=== PATIENT | female | born 1940 | race Caucasian/White ===

== ENCOUNTER 2017-07-04 13:52 | Inpatient (IN) ==
--- NOTE | 2017-07-04 13:58 | Emergency Department Note ---
Disposition Clinical Impression: Weakness, Vertigo, Hallucination Disposition: Admitted As Inpatient Condition: Good General Adult HPI - General Chief complaint: ED Dizziness Stated complaint: vertigo Time Seen by Provider: 07/04/17 13:54 Source: patient Limitations: no limitations - History of Present Illness Pain Scale: 5 - Related Data Home Medications Medication Instructions Recorded Confirmed Simvastatin [Zocor] 20 mg PO HS 03/23/16 07/04/17 glyBURIDE [GlyBURIDE] 5 mg PO QPM 03/23/16 07/04/17 glyBURIDE [GlyBURIDE] 7.5 mg PO QAM 03/23/16 07/04/17 Ascorbate Calcium [Vitamin C] 500 mg PO DAILY 04/02/16 07/04/17 Aspirin Enteric Coated [Aspirin EC] 81 mg PO DAILY 04/02/16 07/04/17 Calcium Carbonate/Vitamin D3 1 each PO DAILY 04/02/16 07/04/17 [Calcium 500 + D Tablet] Ferrous Sulfate 325 mg PO DAILY 04/02/16 07/04/17 Ciprofloxacin HCl [Cipro] 250 mg PO 07/04/17 07/04/17 Meclizine HCl [Verticalm] 25 mg PO TID PRN 07/04/17 07/04/17 Allergies Allergy/AdvReac Type Severity Reaction Status Date / Time Penicillins Allergy See Verified 07/04/17 14:04 Comments sulfabenzamide Allergy See Verified 07/04/17 14:04 Comments Past Medical History - Past Medical History Medical history: Reports: arthritis, diabetes, hyperlipidemia, other Surgical history: Reports: breast surgery, carotid endarterectomy, colectomy Psychiatric history: Reports: no psych history - Social History Smoking Status: Never smoker Smokeless Tobacco Status: No Alcohol use: Reports: none Drug use: Reports: none Physical Exam - General Limitations: no limitations General appearance: alert, in no apparent distress Course Vital Signs Temperature 97.7 F 07/04/17 13:54 Pulse Rate 76 07/04/17 13:54 Respiratory Rate 20 07/04/17 13:54 Blood Pressure 158/126 07/04/17 13:54 O2 Sat by Pulse Oximetry 99 07/04/17 13:54 Temperature 97.6 F 07/05/17 11:45 Pulse Rate 74 07/05/17 11:45 Respiratory Rate 18 07/05/17 11:45 Blood Pressure 130/75 07/05/17 11:45 O2 Sat by Pulse Oximetry 97 07/05/17 11:45 Oxygen Delivery Oxygen Delivery Room Air Medical Decision Making - Lab Data Result diagrams: 07/05/17 05:53 07/05/17 05:53 Lab Results 07/04/17 07/04/17 07/04/17 Range/Units 14:25 14:25 14:25 WBC 5.2 (4.3-11.1) K/mcL RBC 4.13 (3.82-4.97) M/mcL Hgb 15.1 (11.5-15.4) g/dL Hct 41.3 (35.3-44.9) % MCV 100.0 (83.0-100.0) fL MCH 36.6 H (28.0-33.3) pg MCHC 36.6 H (31.6-35.5) g/dL RDW 16.7 H (11.5-14.5) % Plt Count 208 (140-400) K/mcL MPV 9.3 L (9.4-12.4) fL Immature Gran % 0.2 (0-4) % Seg Neutrophils % 58.8 % Lymphocytes % 28.9 % Monocytes % 10.7 % Eosinophils % 0.6 % Basophils % 0.8 % Neutrophils # 3.0 (1.6-8.9) K/mcL Lymphocytes # 1.5 (0.6-4.6) K/mcL Monocytes # 0.6 (0.0-1.3) K/mcL Eosinophils # 0.0 (0.0-0.6) K/mcL Basophils # 0.0 (0.0-0.2) K/mcL PT 11.3 (9.4-12.1) Seconds INR 1.1 Sodium 137 (136-145) mEq/L Potassium 3.9 (3.5-4.5) mEq/L Chloride 104 (98-109) mEq/L Carbon Dioxide 24 (19-29) mEq/L BUN 12 (7-20) mg/dL Creatinine 0.77 (0.57-1.11) mg/dL Est GFR ( Amer) > 60 (> 60) Est GFR (Non-Af Amer) > 60 (> 60) BUN/Creatinine Ratio 16 (6-26) Glucose 124 H (70-99) mg/dL Calculated Osmolality 285 (280-300) Lactic Acid (0.5-2.2) mmol/L Calcium 9.4 (8.6-10.8) mg/dL Total Bilirubin 1.1 (0.2-1.2) mg/dL AST 27 (5-34) Units/L ALT 42 (0-55) Units/L Alkaline Phosphatase 69 (38-126) Units/L Troponin I (0-0.03) ng/mL Serum Total Protein 7.0 (6.0-8.3) g/dL Albumin 3.8 (3.5-5.0) g/dL Globulin 3.2 (2.4-3.5) g/dL Albumin/Globulin Ratio 1.2 (1.1-2.2) Urine Color (Yellow) Urine Clarity (Clear) Urine pH (5.0-8.0) pH Units Ur Specific [employer] (1.010-1.025) Urine Protein (Neg-Trace) mg/dL Urine Glucose (UA) (Normal) mg/dL Urine Ketones (Negative) mg/dL Urine Blood (Negative) Urine Nitrite (Negative) Urine Bilirubin (Negative) Urine Urobilinogen (Normal) mg/dL Ur Leukocyte Esterase (Negative) Urine Microscopic RBC (0-3) per hpf Urine Microscopic WBC (0-3) per hpf Ur Squamous Epith Cells (None-Few) per lpf Urine Bacteria (None-Few) per hpf Hyaline Casts (None-Few) per lpf Ur Culture Indicated? (NO) 07/04/17 07/04/17 07/04/17 Range/Units 14:25 14:25 15:27 WBC (4.3-11.1) K/mcL RBC (3.82-4.97) M/mcL Hgb (11.5-15.4) g/dL Hct (35.3-44.9) % MCV (83.0-100.0) fL MCH (28.0-33.3) pg MCHC (31.6-35.5) g/dL RDW (11.5-14.5) % Plt Count (140-400) K/mcL MPV (9.4-12.4) fL Immature Gran % (0-4) % Seg Neutrophils % % Lymphocytes % % Monocytes % % Eosinophils % % Basophils % % Neutrophils # (1.6-8.9) K/mcL Lymphocytes # (0.6-4.6) K/mcL Monocytes # (0.0-1.3) K/mcL Eosinophils # (0.0-0.6) K/mcL Basophils # (0.0-0.2) K/mcL PT (9.4-12.1) Seconds INR Sodium (136-145) mEq/L Potassium (3.5-4.5) mEq/L Chloride (98-109) mEq/L Carbon Dioxide (19-29) mEq/L BUN (7-20) mg/dL Creatinine (0.57-1.11) mg/dL Est GFR ( Amer) (> 60) Est GFR (Non-Af Amer) (> 60) BUN/Creatinine Ratio (6-26) Glucose (70-99) mg/dL Calculated Osmolality (280-300) Lactic Acid 1.8 (0.5-2.2) mmol/L Calcium (8.6-10.8) mg/dL Total Bilirubin (0.2-1.2) mg/dL AST (5-34) Units/L ALT (0-55) Units/L Alkaline Phosphatase (38-126) Units/L Troponin I 0.00 (0-0.03) ng/mL Serum Total Protein (6.0-8.3) g/dL Albumin (3.5-5.0) g/dL Globulin (2.4-3.5) g/dL Albumin/Globulin Ratio (1.1-2.2) Urine Color Yellow (Yellow) Urine Clarity Clear (Clear) Urine pH 7.5 (5.0-8.0) pH Units Ur Specific [place] [employer] 1.019 (1.010-1.025) Urine Protein Negative (Neg-Trace) mg/dL Urine Glucose (UA) Normal (Normal) mg/dL Urine Ketones Negative (Negative) mg/dL Urine Blood Negative (Negative) Urine Nitrite Negative (Negative) Urine Bilirubin Negative (Negative) Urine Urobilinogen Normal (Normal) mg/dL Ur Leukocyte Esterase Small H (Negative) Urine Microscopic RBC 0-3 (0-3) per hpf Urine Microscopic WBC 5-15 H (0-3) per hpf Ur Squamous Epith Cells Many H (None-Few) per lpf Urine Bacteria None Seen (None-Few) per hpf Hyaline Casts None Seen (None-Few) per lpf Ur Culture Indicated? YES A (NO) Attestation Statement - Attestation Attestation: I examined this patient and my medical decision-making was reviewed with the Resident Physician. I agree with the documented findings, disposition and treatment plan as described except to the extent set forth below. [id number] time provided Patient arrives by ambulance. She complains of hallucinations. She is currently taking ciprofloxacin for urinary tract infection. She complains of chest and abdominal discomfort. She is anxious appearing on exam
[2017-07-04] MEDS ORDERED: Ondansetron 4 MG/2 ML VIAL IVP ONE (14:04)
--- NOTE | 2017-07-04 14:08 | Emergency Department Note ---
Disposition Clinical Impression: Weakness, Vertigo, Hallucination Disposition: Admitted As Inpatient Condition: Good Referrals: Mario Rojas DO [Primary Care Provider] - Forms: ED Satisfaction Letter General Adult HPI - General Chief complaint: ED Dizziness Stated complaint: vertigo Time Seen by Provider: 07/04/17 13:54 Source: patient Limitations: no limitations Nursing Notes Reviewed: Yes Vital Signs Reviewed: Yes - History of Present Illness HPI Narrative: Patient presents today for evaluation of weakness, dizziness, hallucinations. Patient was recently seen and evaluated at outside ED approximately 1 week ago. Patient was placed on antibiotics which have since been changed twice. Patient states that weakness and dizziness continue. She started to develop hallucinations last night. Describes pain in the abnormal environment as well as being completely lost. Patient's most recent medication is Cipro. Patient has not had a thorough workup of potential dizziness. Patient has worsening symptoms despite treatment. Overall the patient does have some mild abdominal discomfort. Does not stay better worse with anything. Patient has not had abnormal bowel movements. Patient will receive blood work, CT head, abdomen/ pelvis, urinalysis and likely admission secondary to living at home alone. Patient's recently in February and the patient has not been taking this well. Pain Scale: 5 - Related Data Home Medications Medication Instructions Recorded Confirmed Simvastatin [Zocor] 20 mg PO HS 03/23/16 07/04/17 glyBURIDE [GlyBURIDE] 5 mg PO QPM 03/23/16 07/04/17 glyBURIDE [GlyBURIDE] 7.5 mg PO QAM 03/23/16 07/04/17 Ascorbate Calcium [Vitamin C] 500 mg PO DAILY 04/02/16 07/04/17 Aspirin Enteric Coated [Aspirin EC] 81 mg PO DAILY 04/02/16 07/04/17 Calcium Carbonate/Vitamin D3 1 each PO DAILY 04/02/16 07/04/17 [Calcium 500 + D Tablet] Ferrous Sulfate 325 mg PO DAILY 04/02/16 07/04/17 Ciprofloxacin HCl [Cipro] 250 mg PO 07/04/17 07/04/17 Meclizine HCl [Verticalm] 25 mg PO TID PRN 07/04/17 07/04/17 Allergies Allergy/AdvReac Type Severity Reaction Status Date / Time Penicillins Allergy See Verified 07/04/17 14:04 Comments sulfabenzamide Allergy See Verified 07/04/17 14:04 Comments Review of Systems: GENERAL: ~No weight change, change in appetite, thirst, fever or chills. HEENT: ~No headache or blurred vision. CARDIOPULMONARY: ~No chest pain, palpitations or shortness of breath. GASTROINTESTINAL: ~Nausea GENITOURINARY: ~No dysuria or pyuria. ENDOCRINE: ~No goiter, lethargy or heat/cold intolerance. HEMATOLOGY/ONCOLOGY: ~No pallor, bruising or bleeding. MUSCULOSKELETAL: ~No change in strength. No swelling. NEUROLOGIC: ~Dizziness. PSYCHIATRIC: ~No change in personality, affect or depression. Past Medical History - Past Medical History Medical history: Reports: arthritis, diabetes, hyperlipidemia, other Surgical history: Reports: breast surgery, carotid endarterectomy, colectomy Psychiatric history: Reports: no psych history - Social History Smoking Status: Never smoker Smokeless Tobacco Status: No Alcohol use: Reports: none Drug use: Reports: none Physical Exam Head: Normocephalic Atraumatic, dizziness symptomatic when trying to sit her up. Eyes: PERRL, EOMI ENT: Airway patent, no stridor Neck: supple, no meningismus Chest: Lungs clear to auscultation bilateral Cardiac: Regular rate and rhythm, no murmurs, rubs or gallops Abdomen: soft, mild tenderness to palpation along the lower abdomen. Musculoskeletal: Calves symmetric, nontender, no palpable cord Skin: No rash, normal skin tone Neuro: Alert and Oriented to person, place, and time; No focal deficit, CN 2-12 symmetric and intact - General Limitations: no limitations General appearance: alert, in no apparent distress Course - Consultations Consultation #1: Case was discussed with Michelle Cavanaugh. Patient accepted for admission. Vital Signs Temperature 97.7 F 07/04/17 13:54 Pulse Rate 76 07/04/17 13:54 Respiratory Rate 20 07/04/17 13:54 Blood Pressure 158/126 07/04/17 13:54 O2 Sat by Pulse Oximetry 99 07/04/17 13:54 Temperature 97.7 F 07/04/17 13:54 Pulse Rate 73 07/04/17 15:29 Respiratory Rate 16 07/04/17 15:29 Blood Pressure 157/73 07/04/17 15:29 O2 Sat by Pulse Oximetry 99 07/04/17 15:29 Oxygen Delivery Oxygen Delivery Room Air Medical Decision Making - Medical Records Medical records reviewed: Yes I reviewed the patient's medical records. - Lab Data Lab results reviewed: Yes I reviewed the patient's lab results. Result diagrams: 07/04/17 14:25 07/04/17 14:25 Lab Results 07/04/17 07/04/17 07/04/17 Range/Units 14:25 14:25 14:25 WBC 5.2 (4.3-11.1) K/mcL RBC 4.13 (3.82-4.97) M/mcL Hgb 15.1 (11.5-15.4) g/dL Hct 41.3 (35.3-44.9) % MCV 100.0 (83.0-100.0) fL MCH 36.6 H (28.0-33.3) pg MCHC 36.6 H (31.6-35.5) g/dL RDW 16.7 H (11.5-14.5) % Plt Count 208 (140-400) K/mcL MPV 9.3 L (9.4-12.4) fL Immature Gran % 0.2 (0-4) % Seg Neutrophils % 58.8 % Lymphocytes % 28.9 % Monocytes % 10.7 % Eosinophils % 0.6 % Basophils % 0.8 % Neutrophils # 3.0 (1.6-8.9) K/mcL Lymphocytes # 1.5 (0.6-4.6) K/mcL Monocytes # 0.6 (0.0-1.3) K/mcL Eosinophils # 0.0 (0.0-0.6) K/mcL Basophils # 0.0 (0.0-0.2) K/mcL PT 11.3 (9.4-12.1) Seconds INR 1.1 Sodium 137 (136-145) mEq/L Potassium 3.9 (3.5-4.5) mEq/L Chloride 104 (98-109) mEq/L Carbon Dioxide 24 (19-29) mEq/L BUN 12 (7-20) mg/dL Creatinine 0.77 (0.57-1.11) mg/dL Est GFR ( Amer) > 60 (> 60) Est GFR (Non-Af Amer) > 60 (> 60) BUN/Creatinine Ratio 16 (6-26) Glucose 124 H (70-99) mg/dL Calculated Osmolality 285 (280-300) Lactic Acid (0.5-2.2) mmol/L Calcium 9.4 (8.6-10.8) mg/dL Total Bilirubin 1.1 (0.2-1.2) mg/dL AST 27 (5-34) Units/L ALT 42 (0-55) Units/L Alkaline Phosphatase 69 (38-126) Units/L Troponin I (0-0.03) ng/mL Serum Total Protein 7.0 (6.0-8.3) g/dL Albumin 3.8 (3.5-5.0) g/dL Globulin 3.2 (2.4-3.5) g/dL Albumin/Globulin Ratio 1.2 (1.1-2.2) Urine Color (Yellow) Urine Clarity (Clear) Urine pH (5.0-8.0) pH Units Ur Specific [place] (1.010-1.025) Urine Protein (Neg-Trace) mg/dL Urine Glucose (UA) (Normal) mg/dL Urine Ketones (Negative) mg/dL Urine Blood (Negative) Urine Nitrite (Negative) Urine Bilirubin (Negative) Urine Urobilinogen (Normal) mg/dL Ur Leukocyte Esterase (Negative) Urine Microscopic RBC (0-3) per hpf Urine Microscopic WBC (0-3) per hpf Ur Squamous Epith Cells (None-Few) per lpf Urine Bacteria (None-Few) per hpf Hyaline Casts (None-Few) per lpf Ur Culture Indicated? (NO) 07/04/17 07/04/17 07/04/17 Range/Units 14:25 14:25 15:27 WBC (4.3-11.1) K/mcL RBC (3.82-4.97) M/mcL Hgb (11.5-15.4) g/dL Hct (35.3-44.9) % MCV (83.0-100.0) fL MCH (28.0-33.3) pg MCHC (31.6-35.5) g/dL RDW (11.5-14.5) % Plt Count (140-400) K/mcL MPV (9.4-12.4) fL Immature Gran % (0-4) % Seg Neutrophils % % Lymphocytes % % Monocytes % % Eosinophils % % Basophils % % Neutrophils # (1.6-8.9) K/mcL Lymphocytes # (0.6-4.6) K/mcL Monocytes # (0.0-1.3) K/mcL Eosinophils # (0.0-0.6) K/mcL Basophils # (0.0-0.2) K/mcL PT (9.4-12.1) Seconds INR Sodium (136-145) mEq/L Potassium (3.5-4.5) mEq/L Chloride (98-109) mEq/L Carbon Dioxide (19-29) mEq/L BUN (7-20) mg/dL Creatinine (0.57-1.11) mg/dL Est GFR ( Amer) (> 60) Est GFR (Non-Af Amer) (> 60) BUN/Creatinine Ratio (6-26) Glucose (70-99) mg/dL Calculated Osmolality (280-300) Lactic Acid 1.8 (0.5-2.2) mmol/L Calcium (8.6-10.8) mg/dL Total Bilirubin (0.2-1.2) mg/dL AST (5-34) Units/L ALT (0-55) Units/L Alkaline Phosphatase (38-126) Units/L Troponin I 0.00 (0-0.03) ng/mL Serum Total Protein (6.0-8.3) g/dL Albumin (3.5-5.0) g/dL Globulin (2.4-3.5) g/dL Albumin/Globulin Ratio (1.1-2.2) Urine Color Yellow (Yellow) Urine Clarity Clear (Clear) Urine pH 7.5 (5.0-8.0) pH Units Ur Specific [place] 1.019 (1.010-1.025) Urine Protein Negative (Neg-Trace) mg/dL Urine Glucose (UA) Normal (Normal) mg/dL Urine Ketones Negative (Negative) mg/dL Urine Blood Negative (Negative) Urine Nitrite Negative (Negative) Urine Bilirubin Negative (Negative) Urine Urobilinogen Normal (Normal) mg/dL Ur Leukocyte Esterase Small H (Negative) Urine Microscopic RBC 0-3 (0-3) per hpf Urine Microscopic WBC 5-15 H (0-3) per hpf Ur Squamous Epith Cells Many H (None-Few) per lpf Urine Bacteria None Seen (None-Few) per hpf Hyaline Casts None Seen (None-Few) per lpf Ur Culture Indicated? YES A (NO) - Radiology Data Radiology results reviewed: Yes I reviewed the patient's radiology results. - EKG Data EKG #1 EKG attestation: Yes I reviewed and interpreted this EKG. EKG results narrative: EKG shows sinus rhythm with ventricular rate of 65 bpm. NM interval 157. QRS 76. QTC 389. Patient has no significant ST elevations or depressions. Patient does have T-wave flattening of the recording leads. Similar appearance to 04/19/16.
[2017-07-04 14:32] LABS: Basophils % 0.8 %; Eosinophils % 0.6 %; Hematocrit 41.3 % (35.3-44.9); Hemoglobin 15.1 g/dL (11.5-15.4); Immature Granulocytes % 0.2 % (0-4); Lymphocytes # 1.5 K/mcL (0.6-4.6); Lymphocytes % 28.9 %; Mean Corpuscular HGB Conc 36.6 g/dL (31.6-35.5); Mean Corpuscular Hemoglobin 36.6 pg (28.0-33.3); Mean Platelet Volume 9.3 fL (9.4-12.4); Monocytes # 0.6 K/mcL (0.0-1.3); Monocytes % 10.7 %; Platelet Count 208 K/mcL (140-400); Red Blood Count 4.13 M/mcL (3.82-4.97); Red Cell Distribution Width 16.7 % (11.5-14.5); Segmented Neutrophils % 58.8 %
[2017-07-04 14:42] LABS: INR 1.1; Prothrombin Time 11.3 Seconds (9.4-12.1)
[2017-07-04 14:44] LABS: Alanine Aminotransferase 42 Units/L (0-55); Albumin 3.8 g/dL (3.5-5.0); Albumin/Globulin Ratio 1.2 (1.1-2.2); Alkaline Phosphatase 69 Units/L (38-126); Aspartate Amino Transferase 27 Units/L (5-34); BUN/Creatinine Ratio 16 (6-26); Bilirubin,Total 1.1 mg/dL (0.2-1.2); Blood Urea Nitrogen 12 mg/dL (7-20); Calcium 9.4 mg/dL (8.6-10.8); Carbon Dioxide 24 mEq/L (19-29); Chloride 104 mEq/L (98-109); Globulin 3.2 g/dL (2.4-3.5); Glucose 124 mg/dL (70-99); Osmolality,Calculated 285 (280-300); Potassium 3.9 mEq/L (3.5-4.5); Sodium 137 mEq/L (136-145); eGFR For African Americans > 60 (> 60); eGFR For Non-African Americans > 60 (> 60)
[2017-07-04 15:37] LABS: Bilirubin,Urine Negative (Negative); Blood,Urine Negative (Negative); Clarity,Urine Clear (Clear); Color,Urine Yellow (Yellow); Glucose,Urine (UA) Normal (Normal); Ketones,Urine Negative (Negative); Leukocyte Esterase,Urine Small (Negative); Nitrite,Urine Negative (Negative); PH,Urine 7.5 pH Units (5.0-8.0); Protein,Urine Negative (Neg-Trace); Specific Gravity,Urine 1.019 (1.010-1.025); Urobilinogen,Urine Normal (Normal)
[2017-07-04 15:39] LABS: Bacteria,Urine None Seen per hpf (None-Few); Hyaline Casts,Urine None Seen per lpf (None-Few); RBC,Urine 0-3 per hpf (0-3); Squamous Epithelial Cell,Urine Many per lpf (None-Few)
[2017-07-04] MEDS ORDERED: Ondansetron 4 MG/2 ML VIAL IVP PRN (19:37)
[2017-07-04] MEDS ORDERED: *HR* Morphine 2 MG/ML SYRINGE IVP PRN (19:37)
[2017-07-04] MEDS ORDERED: Naloxone 0.4 MG/ML INJ IVP PRN (19:37)
[2017-07-04] MEDS ORDERED: D5% in Water 1,000 ML IVC PRN (20:09)
[2017-07-04] MEDS ORDERED: Dextrose Gel 15 GM PO PRN ×2 (20:09)
[2017-07-04] MEDS ORDERED: *HR* Dextrose 50 % in Water (Syg) 50 ML SYRINGE IVP PRN (20:09)
[2017-07-04] MEDS: 0.9 % Sodium Chloride 1,000 ML IVC SCH (20:20)
[2017-07-04] MEDS: Levofloxacin 750 MG/150 ML 750 MG/150 ML BAG IVPB SCH (20:25)
[2017-07-04] MEDS: Insulin LISPRO 300 UNITS/3 ML VIAL SQ SCH (21:00)
--- NOTE | 2017-07-04 22:34 | Internal Med History&Physical ---
Date of Encounter: 07/04/17 Time of Encounter: 20:40 Assessment and Plan (1) UTI (urinary tract infection) Current visit: Yes Status: Acute Acute cystitis, UTI, likely secondary to gram-negative bacilli present on admission - likely causing generalized weakness Continue IV Levaquin, IV fluids, Tylenol as needed Cultures pending CT abdomen - extensive diverticulosis with no diverticulitis, no acute process CT head - no acute intracranial process Cardiac telemetry, labs in a.m., monitor closely Qualifiers: Urinary tract infection type: acute cystitis Hematuria presence: without hematuria Qualified Code(s): N30.00 - Acute cystitis without hematuria (2) Benign paroxysmal positional vertigo Current visit: No Status: Chronic Chronic BPPV causing dizziness Continue Antivert as needed Qualifiers: Laterality: unspecified laterality Qualified Code(s): H81.10 - Benign paroxysmal vertigo, unspecified ear (3) DM w/o complication type II Current visit: No Status: Chronic Type 2 diabetes mellitus, [id number], hyperglycemia Continue insulin sliding scale, glucose checks Qualifiers: Diabetes mellitus [place] [employer] insulin use: without [place] [employer] use Qualified Code(s): E11.9 - Type 2 diabetes mellitus without complications (4) Hyperlipidemia Current visit: No Status: Chronic Continue Zocor Qualifiers: Hyperlipidemia type: unspecified Qualified Code(s): E78.5 - Hyperlipidemia , unspecified (5) DVT prophylaxis Current visit: Yes Status: Acute Continue heparin subcutaneous Internal Medicine - H&P: HPI Chief complaint: Generalized weakness, dizziness Admitted From: Emergency Dept Plans for Post Hospital Care: Home History of present illness: Ms. Ambriz is a 76 year old female with past medical history arthritis, diabetes , hyperlipidemia and vertigo. Patient presents to the ED with complaints of generalized weakness and dizziness. Examined in the room. Patient is awake and alert. Not in any distress. Able to provide all history. No family members at bedside. Patient was recently evaluated at the outside ED about a week ago for severe complaints. She was placed on antibiotics for UTI. Patient states her symptoms have been gradually worsening. She states she has been also been having some confusion over the past few days. She states she did take Antivert for her dizziness which did not help much. She denies chest pain or shortness of breath. Denies palpitations or any other problems. Dizziness and weakness is worse when she tries to get up and change of position. She states her has recently and thinks that this may be making things worse for her. No other acute events or complaints. Initial workup in the ED shows a UTI. CT of the abdomen and pelvis is negative. CT of the head is negative for any acute intracranial abnormality. Patient is being admitted for generalized weakness and dizziness and UTI. She will need IV antibiotics and IV fluids. Patient has been extended about her condition and plan of care in detail. No unanswered questions. She understood and agreed. CODE STATUS full code. Past Med Surg Social Fam HX - Past Medical History Medical history: arthritis, diabetes, hyperlipidemia Psychiatric history: no psych history - Past Surgical History Surgical History: breast surgery, carotid endarterectomy, colectomy, hysterectomy - Social History Smoking Status: Never smoker Smokeless Tobacco Status: No Alcohol use: none Drug use: none - Family History Mother Living Status: Hx Family Cardiac Disorders: Yes Father Living Status: Hx Family Endocrine Disorder: Yes (DM) Internal Medicine - H&P: Meds Simvastatin [Zocor] 20 mg PO HS 03/23/16 [History] glyBURIDE [GlyBURIDE] 5 mg PO QPM 03/23/16 [History] glyBURIDE [GlyBURIDE] 7.5 mg PO QAM 03/23/16 [History] Ascorbate Calcium [Vitamin C] 500 mg PO DAILY 04/02/16 [History] Aspirin Enteric Coated [Aspirin EC] 81 mg PO DAILY 04/02/16 [History] Calcium Carbonate/Vitamin D3 [Calcium 500 + D Tablet] 1 each PO DAILY 04/02/16 [ History] Ferrous Sulfate 325 mg PO DAILY 04/02/16 [History] Ciprofloxacin HCl [Cipro] 250 mg PO 07/04/17 [History] Meclizine HCl [Verticalm] 25 mg PO TID PRN 07/04/17 [History] 3 Allergy/AdvReac Type Severity Reaction Status Date / Time Penicillins Allergy See Verified 07/04/17 14:04 Comments sulfabenzamide Allergy See Verified 07/04/17 14:04 Comments All Systems PM: A 10-system review of systems was performed and is negative for pertinent findings except as documented above in the HPI. - Constitutional Constitutional: fatigue, fever(s), weakness - EENT Eyes: no blurry vision - Cardiovascular Cardiovascular ROS IM: no chest pain, no claudication, no diaphoresis, no dyspnea, no dyspnea on exertion, no orthopnea, no palpitations, no syncope - Respiratory Respiratory: no cough, no dyspnea, no dyspnea on exertion, no wheezing, no chest congestion - Gastrointestinal Gastrointestinal: no abdominal pain, no constipation, no cramping, no diarrhea, no dyspepsia, no heartburn, no hematemesis, no nausea, no vomiting - Genitourinary Genitourinary: dysuria - Neurological Neurological ROS: confusion, dizziness, no abnormal gait, no loss of vision, no numbness, no tingling - Constitutional Vitals: Temp Pulse Resp BP Pulse Ox 97.7 F 81 16 158/83 98 07/04/17 13:54 07/04/17 17:15 07/04/17 17:15 07/04/17 17:15 07/04/17 17:15 General appearance: Present: cooperative, A&O X 3, pleasant, no acute distress, answers questions appropriately - Head Head exam: Present: atraumatic - Eye Eye exam: Present: EOMI - ENT ENT exam: Present: mucous membranes dry - Respiratory Respiratory exam: Present: CTAB. Absent: rales, rhonchi, wheezes, tachypnea - Cardiovascular Cardiovascular exam: Present: RRR, +S1, +S2 - GI/Abdominal GI/Abdominal exam: Present: soft, no peritoneal signs. Absent: distended, firm , guarding, tenderness - Extremities Exam Extremities exam: Present: radial pulses palpable and symmetrical. Absent: calf tenderness, cyanotic, pedal edema - Neurological Exam Neurological exam: Present: alert, CN II-XII intact, oriented X3, no focal deficits. Absent: facial droop, speech deficit Internal Med - H&P Results - Labs CBC & Chem 7: 07/04/17 14:25 07/04/17 14:25
[2017-07-05] MEDS: *HR* Heparin 5,000 UNIT/ML VIAL SQ SCH ×2 (06:43→17:39)
[2017-07-05] MEDS: Famotidine 20 MG/2 ML VIAL IVP SCH ×2 (06:46→17:39)
[2017-07-05 07:16] LABS: BUN/Creatinine Ratio 17 (6-26); Blood Urea Nitrogen 14 mg/dL (7-20); Calcium 9.1 mg/dL (8.6-10.8); Carbon Dioxide 26 mEq/L (19-29); Chloride 106 mEq/L (98-109); Glucose 77 mg/dL (70-99); Osmolality,Calculated 291 (280-300); Potassium 4.2 mEq/L (3.5-4.5); Sodium 141 mEq/L (136-145); eGFR For African Americans > 60 (> 60); eGFR For Non-African Americans > 60 (> 60)
[2017-07-05 08:49] LABS: Eosinophils % 0.8 %; Hemoglobin 14.6 g/dL (11.5-15.4)
[2017-07-05 09:21] LABS: Basophils % 0.6 %; Eosinophils # 0.1 K/mcL (0.0-0.6); Hematocrit 38.1 % (35.3-44.9); Immature Granulocytes % 0.8 % (0-4); Immature Platelets 3.5 % (1.1-6.1); Lymphocytes # 1.7 K/mcL (0.6-4.6); Lymphocytes % 26.7 %; Mean Corpuscular Hemoglobin 38.8 pg (28.0-33.3); Mean Corpuscular Volume 101.3 fL (83.0-100.0); Mean Platelet Volume 9.8 fL (9.4-12.4); Monocytes # 0.7 K/mcL (0.0-1.3); Monocytes % 11.8 %; Neutrophils # 3.7 K/mcL (1.6-8.9); Platelet Count 236 K/mcL (140-400); Red Blood Count 3.76 M/mcL (3.82-4.97); Red Cell Distribution Width 17.9 % (11.5-14.5); Segmented Neutrophils % 59.3 %
[2017-07-05 09:22] LABS: Mean Corpuscular HGB Conc 38.3 g/dL (31.6-35.5)
[2017-07-05] MEDS: Insulin LISPRO 300 UNITS/3 ML VIAL SQ SCH ×4 (09:28→20:59)
[2017-07-05] MEDS: (Calcium Carbonate/Vitamin D3 [Calcium 500-Vit D3 400) PO SCH (09:31)
[2017-07-05] MEDS: Aspirin Enteric Coated 81 MG Tablet PO SCH (09:31)
[2017-07-05] MEDS: Ascorbic Acid 500 MG TABLET PO SCH (09:31)
--- NOTE | 2017-07-05 15:20 | Internal Med Progress Note ---
Date of Encounter: 07/05/17 Time of Encounter: 09:20 - Assessment and plan (1) UTI (urinary tract infection) Current Visit: Yes Status: Acute Assessment and plan: Acute cystitis, UTI, likely secondary to gram-negative bacilli present on admission - likely causing generalized weakness - symptoms seem to be improving slowly Continue IV Levaquin, IV fluids, Tylenol as needed Continue all home meds Cultures - pending CT abdomen - extensive diverticulosis with no diverticulitis, no acute process CT head - no acute intracranial process Lower chest - lung bases appear unremarkable Lactic acid - 1.8 Cardiac telemetry, labs in a.m., monitor closely Qualifiers: Urinary tract infection type: acute cystitis Hematuria presence: without hematuria Qualified Code(s): N30.00 - Acute cystitis without hematuria (2) Benign paroxysmal positional vertigo Current Visit: No Status: Chronic Assessment and plan: Chronic BPPV - likely causing dizziness Continue Antivert as needed Qualifiers: Laterality: unspecified laterality Qualified Code(s): H81.10 - Benign paroxysmal vertigo, unspecified ear (3) DM w/o complication type II Current Visit: No Status: Chronic Assessment and plan: Type 2 diabetes mellitus, [id number], normoglycemia Continue insulin sliding scale, glucose checks Qualifiers: Diabetes mellitus intermediate teacher insulin use: without intermediate teacher use Qualified Code(s): E11.9 - Type 2 diabetes mellitus without complications (4) Hyperlipidemia Current Visit: No Status: Chronic Assessment and plan: Continue Zocor Qualifiers: Hyperlipidemia type: unspecified Qualified Code(s): E78.5 - Hyperlipidemia , unspecified (5) DVT prophylaxis Current Visit: Yes Status: Acute Assessment and plan: Continue heparin subcutaneous - Time Spent With Patient 25 - 35 minutes - Subjective Interval history: Examined this morning. Patient is awake and alert. Not in any distress. Denies chest pain or shortness of breath. Hemodynamically stable. No fever. Complains of persistent generalized weakness. States her dizziness has improved. Tolerating oral diet well. Ambulating with some assistance. No other acute events or complaints. - Constitutional Vitals: Temp Pulse Resp BP Pulse Ox 97.6 F 74 18 130/75 97 07/05/17 11:45 07/05/17 11:45 07/05/17 11:45 07/05/17 11:45 07/05/17 11:45 General appearance: Present: cooperative, A&O X 3, pleasant, no acute distress, answers questions appropriately - Head Head exam: Present: atraumatic - Eye Eye exam: Present: EOMI - ENT ENT exam: Present: mucous membranes moist - Respiratory Respiratory exam: Present: CTAB. Absent: rales, rhonchi, wheezes, tachypnea - Cardiovascular Cardiovascular exam: Present: RRR, +S1, +S2 - GI/Abdominal GI/Abdominal exam: Present: soft. Absent: distended, firm, guarding, tenderness - Extremities Exam Extremities exam: Present: pedal edema (Mild bilateral), radial pulses palpable and symmetrical. Absent: calf tenderness, cyanotic - Neurological Exam Neurological exam: Present: alert, CN II-XII intact, oriented X3, no focal deficits. Absent: facial droop, speech deficit Internal Medicine: Result - Labs CBC & Chem 7: 07/05/17 05:53 07/05/17 05:53 Labs: Short CBC 07/05/17 Range/Units 05:53 WBC 6.3 (4.3-11.1) K/mcL Hgb 14.6 (11.5-15.4) g/dL Hct 38.1 (35.3-44.9) % Plt Count 236 (140-400) K/mcL Neutrophils # 3.7 (1.6-8.9) K/mcL BMP 07/05/17 05:53 Sodium 141 Potassium 4.2 Chloride 106 Carbon Dioxide 26 BUN 14 Creatinine 0.84 Glucose 77 Calcium 9.1 - ABG Interpretation ABG results: PT/INR, D-dimer PT 11.3 Seconds (9.4-12.1) 07/04/17 14:25 Consult Discharge Plan - Plan Referrals: Mario Rojas DO [Primary Care Provider] -
[2017-07-05] MEDS: 0.9 % Sodium Chloride 1,000 ML IVC SCH (17:38)
[2017-07-05] MEDS: Levofloxacin 750 MG/150 ML 750 MG/150 ML BAG IVPB SCH (20:51)
[2017-07-06] MEDS: *HR* Heparin 5,000 UNIT/ML VIAL SQ SCH ×2 (05:34→18:15)
[2017-07-06] MEDS: Famotidine 20 MG/2 ML VIAL IVP SCH ×2 (05:34→18:16)
[2017-07-06] MEDS: Insulin LISPRO 300 UNITS/3 ML VIAL SQ SCH ×4 (08:27→22:00)
[2017-07-06] MEDS: Ascorbic Acid 500 MG TABLET PO SCH (09:19)
[2017-07-06] MEDS: Aspirin Enteric Coated 81 MG Tablet PO SCH (09:19)
[2017-07-06] MEDS: (Calcium Carbonate/Vitamin D3 [Calcium 500-Vit D3 400) PO SCH (09:20)
--- NOTE | 2017-07-06 10:26 | Internal Med Progress Note ---
Date of Encounter: 07/06/17 Time of Encounter: 08:00 - Assessment and plan (1) UTI (urinary tract infection) Current Visit: Yes Status: Acute Assessment and plan: Acute cystitis, UTI, likely secondary to gram-negative bacilli present on admission - likely causing generalized weakness - symptoms are improving slowly Continue IV Levaquin, IV fluids, Tylenol as needed Continue all home meds Cultures - no growth CT abdomen - extensive diverticulosis with no diverticulitis, no acute process CT head - no acute intracranial process Lower chest - lung bases appear unremarkable Lactic acid - 1.8 Cardiac telemetry, monitor closely, Anticipate discharge in a.m. Qualifiers: Urinary tract infection type: acute cystitis Hematuria presence: without hematuria Qualified Code(s): N30.00 - Acute cystitis without hematuria (2) Benign paroxysmal positional vertigo Current Visit: No Status: Chronic Assessment and plan: Chronic BPPV - likely causing dizziness Continue Antivert as needed Qualifiers: Laterality: unspecified laterality Qualified Code(s): H81.10 - Benign paroxysmal vertigo, unspecified ear (3) DM w/o complication type II Current Visit: No Status: Chronic Assessment and plan: Type 2 diabetes mellitus, [id number], normoglycemia Continue insulin sliding scale, glucose checks Continue home dose of Glyburide on discharge Qualifiers: Diabetes mellitus mcc insulin use: without terminal manager use Qualified Code(s): E11.9 - Type 2 diabetes mellitus without complications (4) Hyperlipidemia Current Visit: No Status: Chronic Assessment and plan: Continue home dose of Zocor Qualifiers: Hyperlipidemia type: unspecified Qualified Code(s): E78.5 - Hyperlipidemia , unspecified (5) DVT prophylaxis Current Visit: Yes Status: Acute Assessment and plan: Continue Heparin subcutaneous - Time Spent With Patient 25 - 35 minutes - Subjective Interval history: Examined this morning. Patient is awake and alert. Not in any distress. Denies chest pain or shortness of breath. Hemodynamically stable. No fever. Complains of generalized weakness which is persistent. States her dizziness has improved. Tolerating oral diet well. Ambulating with minimal assistance. No other acute events or complaints. Despite discharge home in a.m. - Constitutional Vitals: Temp Pulse Resp BP Pulse Ox 97.6 F 67 18 116/78 95 07/06/17 08:00 07/06/17 08:00 07/06/17 08:00 07/06/17 08:00 07/06/17 08:00 General appearance: Present: cooperative, A&O X 3, pleasant, no acute distress, answers questions appropriately - Head Head exam: Present: atraumatic - Eye Eye exam: Present: EOMI - ENT ENT exam: Present: mucous membranes moist - Respiratory Respiratory exam: Present: CTAB. Absent: accessory muscle use, chest wall tenderness, rales, rhonchi, wheezes, tachypnea - Cardiovascular Cardiovascular exam: Present: RRR, +S1, +S2 - GI/Abdominal GI/Abdominal exam: Present: soft. Absent: distended, firm, guarding, tenderness - Extremities Exam Extremities exam: Present: pedal edema (Mild bilateral), radial pulses palpable and symmetrical. Absent: calf tenderness, cyanotic - Neurological Exam Neurological exam: Present: alert, CN II-XII intact, oriented X3, no focal deficits. Absent: facial droop, speech deficit Internal Medicine: Result - Labs CBC & Chem 7: 07/05/17 05:53 07/05/17 05:53 - ABG Interpretation ABG results: PT/INR, D-dimer PT 11.3 Seconds (9.4-12.1) 07/04/17 14:25 Consult Discharge Plan - Plan Referrals: Mario Rojas DO [Primary Care Provider] -
[2017-07-06] MEDS: Levofloxacin 750 MG/150 ML 750 MG/150 ML BAG IVPB SCH (22:01)
[2017-07-07] MEDS: Famotidine 20 MG/2 ML VIAL IVP SCH (05:12)
[2017-07-07] MEDS: *HR* Heparin 5,000 UNIT/ML VIAL SQ SCH ×2 (05:12→18:09)
[2017-07-07] MEDS: Insulin LISPRO 300 UNITS/3 ML VIAL SQ SCH ×4 (08:00→22:44)
[2017-07-07] MEDS: Ascorbic Acid 500 MG TABLET PO SCH (09:24)
[2017-07-07] MEDS: Aspirin Enteric Coated 81 MG Tablet PO SCH (09:24)
[2017-07-07] MEDS: (Calcium Carbonate/Vitamin D3 [Calcium 500-Vit D3 400) PO SCH (09:24)
--- NOTE | 2017-07-07 09:32 | Discharge Summary ---
Date of Encounter: 07/07/17 Time of Encounter: 08:00 - Discharge Diagnosis (1) UTI (urinary tract infection) Priority: Primary Status: Acute Comments: Acute cystitis, UTI, likely secondary to gram-negative bacilli present on admission - likely causing generalized weakness - symptoms now improved Continue PO Levaquin, Tylenol as needed Continue all home meds Cultures - no growth CT abdomen - extensive diverticulosis with no diverticulitis, no acute process CT head - no acute intracranial process Lower chest - lung bases appear unremarkable Lactic acid - 1.8 Advised to follow up with PCP, return if symptoms worsen Qualifiers: Urinary tract infection type: acute cystitis Hematuria presence: without hematuria Qualified Code(s): N30.00 - Acute cystitis without hematuria (2) Benign paroxysmal positional vertigo Priority: Primary Status: Chronic Comments: Chronic BPPV - likely causing dizziness - symptoms now improved Continue Antivert as needed Qualifiers: Laterality: unspecified laterality Qualified Code(s): H81.10 - Benign paroxysmal vertigo, unspecified ear (3) DM w/o complication type II Priority: Secondary Status: Chronic Comments: Type 2 diabetes mellitus, [id number]-jirsbzjme, normoglycemia Continue home dose of Glyburide on discharge Check blood glucose daily, watch for hypoglycemia Qualifiers: Diabetes mellitus termite renewal 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 insulin use: without termite renewal inspector use Qualified Code(s): E11.9 - Type 2 diabetes mellitus without complications (4) Hyperlipidemia Priority: Secondary Status: Chronic Comments: Continue home dose of Zocor Qualifiers: Hyperlipidemia type: unspecified Qualified Code(s): E78.5 - Hyperlipidemia , unspecified - Discharge Medications Prescriptions: Docusate [Colace] 100 mg PO BID PRN #20 capsule PRN Reason: Constipation levoFLOXacin [Levofloxacin] 500 mg PO DAILY 5 Days #5 tablet Meclizine HCl [Verticalm] 25 mg PO TID PRN #30 tablet PRN Reason: Dizziness Home Medications: Simvastatin [Zocor] 20 mg PO HS 03/23/16 [History] glyBURIDE [GlyBURIDE] 5 mg PO QPM 03/23/16 [History] glyBURIDE [GlyBURIDE] 7.5 mg PO QAM 03/23/16 [History] Ascorbate Calcium [Vitamin C] 500 mg PO DAILY 04/02/16 [History] Aspirin Enteric Coated [Aspirin EC] 81 mg PO DAILY 04/02/16 [History] Calcium Carbonate/Vitamin D3 [Calcium 500-Vit D3 400 Tablet] 1 each PO DAILY [History] Ferrous Sulfate 325 mg PO DAILY 04/02/16 [History] Docusate [Colace] 100 mg PO BID PRN #20 capsule 07/07/17 [Rx] Meclizine HCl [Verticalm] 25 mg PO TID PRN #30 tablet 07/07/17 [Rx] levoFLOXacin [Levofloxacin] 500 mg PO DAILY 5 Days #5 tablet 07/07/17 [Rx] Allergies/Adverse Reactions: 3 Allergy/AdvReac Type Severity Reaction Status Date / Time Penicillins Allergy See Verified 07/04/17 14:04 Comments sulfabenzamide Allergy See Verified 07/04/17 14:04 Comments Date of admission: 07/04/17 19:37 Primary care physician: Mario Rojas Consults: 07/05/17 08:53 Consult to Occupational Therapy [CONS] Routine Comment: Evaluate, develop and implement POC Reason for Consult: Weakness Consult to Physical Therapy [CONS] Routine Comment: Evaluate, develop and implement POC Reason for Consult: Weakness Consult to Medical Intern [CONS] Routine Reason for SW Consult: Possible HH/Therapy needs at D/C due to weakness. Anticipated date of discharge: 07/07/17 - Patient Status Disposition: Home Health Service Condition: Good Functional capacity at discharge: independent ambulation Overall status at discharge: patient is progressing back to baseline - Discharge Instructions Follow Up With: Mario Rojas DO [Primary Care Provider] - - Diet and Activity Activity: increase activity as tolerated, resume usual activities as tolerated Diet: diabetic diet Hospital course: Ms. Ambriz is a 76 year old female with past medical history of arthritis, diabetes and hyperlipidemia. She presented to the ED with complaints of generalized weakness and dizziness. She was recently diagnosed with UTI and was placed and antibiotics. Her symptoms have been gradually worsening and she decided to come to the ED. She also stated that she had been more confused and anxious. She does take Antivert for her dizziness which did not help. She denied any other problems at the time of admission. CT of the abdomen and pelvis done initially is negative. Patient to have a UTI on admission. CT of the head is negative for any acute intracranial abnormality. She was started on IV Levaquin and IV fluids. Her generalized weakness and dizziness slowly improved. She was also continued Antivert. Patient also continued on aspirin and simvastatin. Patient is on insulin sliding scale for diabetes. She was on heparin for DVT prophylaxis. Lactic acid is within normal limits. Urine culture does not show any growth. Patient is being discharged with Levaquin by mouth. Patient is now sitting up comfortably in chair and she needs minimal assistance for ambulation. She is tolerating oral diet well. Patient does have anxiety at times and has required one time Ativan, which has helped her. No other acute events or complications during her stay in the hospital. Patient has been explained about her condition and plan of care in detail. She understood and agreed. No unanswered questions. Patient states she feels better and wants to go to ECF. Initially. The patient. Discharge home with home health, but patient would like to go to ECF for short-term. Patient is being discharged in a stable condition. - Time Spent with Patient Total time spent providing and/or coordinating discharge services: Less than 30 minutes - Constitutional Vitals: Temp Pulse Resp BP Pulse Ox 98.2 F 70 14 121/76 94 07/07/17 06:37 07/07/17 06:37 07/07/17 06:37 07/07/17 06:37 07/07/17 06:37 General appearance: Present: cooperative, A&O X 3, pleasant, no acute distress, answers questions appropriately - Head Head exam: Present: atraumatic - Eye Eye exam: Present: EOMI - ENT ENT exam: Present: mucous membranes moist - Respiratory Respiratory exam: Present: CTAB. Absent: rales, rhonchi, wheezes, tachypnea - Cardiovascular Cardiovascular exam: Present: RRR, +S1, +S2 - GI/Abdominal GI/Abdominal exam: Present: soft. Absent: distended, firm, guarding, tenderness - Extremities Exam Extremities exam: Present: radial pulses palpable and symmetrical. Absent: calf tenderness, cyanotic, pedal edema - Neurological Exam Neurological exam: Present: alert, oriented X3, no focal deficits. Absent: facial droop, speech deficit
--- NOTE | 2017-07-07 09:44 | Physician Discharge Referral ---
Home Health/Hosp Referral Info Transfer to: Home Health Provider in Charge Post Discharge: PCP - Diagnosis (1) UTI (urinary tract infection) Priority: Primary Status: Acute (2) Benign paroxysmal positional vertigo Priority: Primary Status: Chronic (3) DM w/o complication type II Priority: Secondary Status: Chronic (4) Hyperlipidemia Priority: Secondary Status: Chronic - Respiratory Orders Smoking Cessation: Smoking cessation has been advised. For more information, call the [place] Tobacco Quit Line at 0-865-MKKJ-NOW. - Diet/Nutrition Diet/Nutrition Orders: Cardiac - Activity Activity Orders: Ambulate - Services Needed Following services are medically necessary services: Nursing, Physical Therapy, Occupational Therapy - Transfer Medications Prescriptions: Docusate [Colace] 100 mg PO BID PRN #20 capsule PRN Reason: Constipation levoFLOXacin [Levofloxacin] 500 mg PO DAILY 5 Days #5 tablet Meclizine HCl [Verticalm] 25 mg PO TID PRN #30 tablet PRN Reason: Dizziness Home Medications: Simvastatin [Zocor] 20 mg PO HS 03/23/16 [History] glyBURIDE [GlyBURIDE] 5 mg PO QPM 03/23/16 [History] glyBURIDE [GlyBURIDE] 7.5 mg PO QAM 03/23/16 [History] Ascorbate Calcium [Vitamin C] 500 mg PO DAILY 04/02/16 [History] Aspirin Enteric Coated [Aspirin EC] 81 mg PO DAILY 04/02/16 [History] Calcium Carbonate/Vitamin D3 [Calcium 500-Vit D3 400 Tablet] 1 each PO DAILY [History] Ferrous Sulfate 325 mg PO DAILY 04/02/16 [History] Docusate [Colace] 100 mg PO BID PRN #20 capsule 07/07/17 [Rx] Meclizine HCl [Verticalm] 25 mg PO TID PRN #30 tablet 07/07/17 [Rx] levoFLOXacin [Levofloxacin] 500 mg PO DAILY 5 Days #5 tablet 07/07/17 [Rx] Allergies/Adverse Reactions: 3 Allergy/AdvReac Type Severity Reaction Status Date / Time Penicillins Allergy See Verified 07/04/17 14:04 Comments sulfabenzamide Allergy See Verified 07/04/17 14:04 Comments Certification: Further, I certify that my clinical findings support that this patient is homebound (i.e. absences from home require considerable and taxing effort and are for medical reasons or [employer] services or infrequently or short duration when for other reasons) because: Homebound Reason: Patient requires assistance of a person or device to safely leave home Attestation: My signature below is to certify that this patient is under my care and that I, or nurse practitioner, or a physician's export sales assistant working with me, has a face-to -face encounter with this patient.
[2017-07-07] MEDS ORDERED: *HR* LORazepam 0.5 MG TABLET PO ONE (14:05)
[2017-07-07] MEDS: Acetaminophen 325 MG TABLET PO PRN ×2 (14:53→23:02)
--- NOTE | 2017-07-07 17:14 | Physician Discharge Referral ---
ExtendedCare Referral Info Provider in Charge after Transfer: PCP Institutional Level of Care: Skilled - Diagnosis (1) UTI (urinary tract infection) Priority: Primary Status: Acute (2) Benign paroxysmal positional vertigo Priority: Primary Status: Chronic (3) DM w/o complication type II Priority: Secondary Status: Chronic (4) Hyperlipidemia Priority: Secondary Status: Chronic Prognosis: Fair Aware of Diagnosis: Patient Aware of Prognosis: Patient - Transfer Medications Prescriptions: Docusate [Colace] 100 mg PO BID PRN #20 capsule PRN Reason: Constipation levoFLOXacin [Levofloxacin] 500 mg PO DAILY 5 Days #5 tablet Meclizine HCl [Verticalm] 25 mg PO TID PRN #30 tablet PRN Reason: Dizziness Home Medications: Simvastatin [Zocor] 20 mg PO HS 03/23/16 [History] glyBURIDE [GlyBURIDE] 5 mg PO QPM 03/23/16 [History] glyBURIDE [GlyBURIDE] 7.5 mg PO QAM 03/23/16 [History] Ascorbate Calcium [Vitamin C] 500 mg PO DAILY 04/02/16 [History] Aspirin Enteric Coated [Aspirin EC] 81 mg PO DAILY 04/02/16 [History] Calcium Carbonate/Vitamin D3 [Calcium 500-Vit D3 400 Tablet] 1 each PO DAILY [History] Ferrous Sulfate 325 mg PO DAILY 04/02/16 [History] Docusate [Colace] 100 mg PO BID PRN #20 capsule 07/07/17 [Rx] Meclizine HCl [Verticalm] 25 mg PO TID PRN #30 tablet 07/07/17 [Rx] levoFLOXacin [Levofloxacin] 500 mg PO DAILY 5 Days #5 tablet 07/07/17 [Rx] Allergies/Adverse Reactions: 3 Allergy/AdvReac Type Severity Reaction Status Date / Time Penicillins Allergy See Verified 07/04/17 14:04 Comments sulfabenzamide Allergy See Verified 07/04/17 14:04 Comments - Respiratory Orders Smoking Cessation: Smoking cessation has been advised. For more information, call the [place] Tobacco Quit Line at 2-040-OLRL-NOW. - Ancillary Orders May use pressure relief devices daily prn - Advance Directives Code Status: Full Code - Mobility Orders Ambulate - Rehabiliation Orders Rehab Potential: Fair Rehab Orders: Evaluation for Physical Therapy, Evaluation for Occupational Therapy - Treatments Skin tear care topically daily PRN per policy - Diet Orders Cardiac CERTIFICATION: I certify that the transfer of the above named patient to an Extended Care Facility is necessary for the continuing treatment of the diagnosis listed. The above information is true and accurate reflection of patient's current condition. Confidential - Redisclosure prohibited without a patient's written consent.
--- NOTE | 2017-07-07 17:17 | Electrocardiograph Report ---
[place] [id number] Test Date: 2017-07-04 Pat Name: Jennifer Ambriz Department: 104 Room: [id number] Gender: F Waistband Setter: : 1940 Requested By: Edis Barrientos Order Number: [id number] Reading MD: Sylvia Dominique Measurements Intervals [place] Rate: 65 P: 21 ME: 157 QRS: -10 QRSD: 76 T: 97 QT: 378 QTc: 389 Interpretive Statements SINUS RHYTHM MODERATE VOLTAGE CRITERIA FOR LVH, CONSIDER NORMAL VARIANT NONSPECIFIC T-WAVE ABNORMALITY Electronically Signed On 07-07-2017 17:15:28 EDT by Sylvia Dominique
[2017-07-07] MEDS: Levofloxacin 750 MG/150 ML 750 MG/150 ML BAG IVPB SCH (22:43)
[2017-07-08] MEDS: *HR* Heparin 5,000 UNIT/ML VIAL SQ SCH (05:52)
[2017-07-08] MEDS ORDERED: Famotidine 20 MG/2 ML VIAL IVP SCH (06:00)
[2017-07-08] MEDS: Insulin LISPRO 300 UNITS/3 ML VIAL SQ SCH ×2 (08:56→12:18)
[2017-07-08] MEDS: Ascorbic Acid 500 MG TABLET PO SCH (09:01)
[2017-07-08] MEDS: Aspirin Enteric Coated 81 MG Tablet PO SCH (09:01)
[2017-07-08] MEDS: (Calcium Carbonate/Vitamin D3 [Calcium 500-Vit D3 400) PO SCH (09:01)
--- NOTE | 2017-07-08 10:26 | Event Note ---
<Ghassan Yoo - Last Filed: 07/08/17 10:23> Date of Encounter: 07/08/17 Time of Encounter: 10:23 Patient is resting comfortably in chair Patient is medically stable and discharged Patient is awaiting placement - plan to go to [facility] this afternoon when a bed is available <Brendon Zhao - Last Filed: 07/08/17 18:01> Date of Encounter: 07/08/17 Ms Ambriz is awaiting placement in SNF. She has no complaints at this time. Exam Alert. Comfortable Heart reg No wheeze Abd soft Plan D/C to [facility] later today.
[2017-07-08 15:19] VITALS: BP 149/92
[2017-07-08] MEDS ORDERED: levoFLOXacin 750 MG TABLET PO SCH (21:00)
[2017-07-09] MEDS ORDERED: Cholecalciferol (D-3) 1,000 UNIT TABLET PO SCH (09:00)
[2017-07-09] MEDS ORDERED: Famotidine 20 MG TABLET PO SCH (09:00)
== END 2017-07-08 16:15 | disposition home health service (06) | DRG 690 ==
LOC: EMEROO 13:52 → 2NENU 13:52 → SUATTDRO 19:37
PROVIDERS: ADMIT Nurse Practitioner Acute Care; ATTEND Internal Medicine

== ENCOUNTER 2018-12-03 07:48 | Observation (INO) ==
--- NOTE | 2018-12-03 08:04 | Emergency Department Note ---
Disposition Clinical Impression: Vertigo Disposition: Admitted As Inpatient Condition: Good Referrals: Mario Rojas DO [Primary Care Provider] - Forms: ED Satisfaction Letter Time of Disposition: 12:42 General Adult HPI - General Chief complaint: ED Dizziness Stated complaint: dizziness Time Seen by Provider: 12/03/18 07:49 Nursing Notes Reviewed: Yes Vital Signs Reviewed: Yes - History of Present Illness HPI Narrative: 78-year-old female with history significant for diabetes and Meniere's disease, states this was diagnosed by ENT Dr. Prince. Reporting by EMS for recent fall and associated dizziness. Patient states she fell overnight when she became dizzy. Feels that room is spinning. She does state this feels similar to prior episodes of dizziness. She denies loss of consciousness. She is not on anticoagulant. Patient was able to ambulate afterwards to her bed, however she was unable to get to her abortive medication, valium. She denies changes in vision changes. Mild headache over area of bruising on her forehead. Denies chest pain or shortness of breath. Associated nausea and vomiting without hematemesis. Pt Subjective Complaint: Dizziness Onset (ago): hour(s) Location: head Radiation: non-radiation Improves with: immobilization Worsens with: movement Associated symptoms: Reports: nausea/vomiting Treatments Prior to Arrival: none - Related Data Home Medications Medication Instructions Recorded Confirmed Simvastatin [Zocor] 20 mg PO HS 03/23/16 07/04/17 glyBURIDE [GlyBURIDE] 5 mg PO QPM 03/23/16 07/04/17 glyBURIDE [GlyBURIDE] 7.5 mg PO QAM 03/23/16 07/04/17 Ascorbate Calcium [Vitamin C] 500 mg PO DAILY 04/02/16 07/04/17 Aspirin Enteric Coated [Aspirin EC] 81 mg PO DAILY 04/02/16 07/04/17 Calcium Carbonate/Vitamin D3 1 each PO DAILY 04/02/16 07/04/17 [Calcium 500-Vit D3 400 Tablet] Ferrous Sulfate 325 mg PO DAILY 04/02/16 07/04/17 Previous Rx's Medication Instructions Recorded Docusate [Colace] 100 mg PO BID PRN #20 capsule 07/07/17 Meclizine HCl [Verticalm] 25 mg PO TID PRN #30 tablet 07/07/17 levoFLOXacin [Levofloxacin] 500 mg PO DAILY 5 Days #5 tablet 07/07/17 Allergies Allergy/AdvReac Type Severity Reaction Status Date / Time Penicillins Allergy See Verified 07/04/17 14:04 Comments sulfabenzamide Allergy See Verified 07/04/17 14:04 Comments Constitutional: Denies: fever, chills Eyes: Denies: vision change ENT ED: Denies: congestion, dysphagia Cardiovascular: Denies: chest pain, palpitations, syncope Respiratory: Denies: cough, wheezes Gastrointestinal: Reports: nausea, vomiting. Denies: abdominal pain, hematemesis Genitourinary: Denies: dysuria Musculoskeletal: Denies: back pain, neck pain Integumentary: Denies: rash Neurological: Reports: vertigo. Denies: headache, numbness, paresthesias Past Medical History - Past Medical History Source: patient, nursing notes reviewed Medical history: Reports: arthritis, diabetes, hyperlipidemia, other Surgical history: Reports: breast surgery, carotid endarterectomy, colectomy Psychiatric history: Reports: no psych history - Social History Smoking Status: Never smoker Smokeless Tobacco Status: No Alcohol use: Reports: none Drug use: Reports: none Physical Exam - General Limitations: no limitations General appearance: alert - Head Head exam: normocephalic - Expanded Head Exam Head exam physicial: Present: contusion (2 cm contusion on forehead) - Eye Eye exam: Present: PERRL, EOMI, nystagmus (Rightward). Absent: scleral icterus, conjunctival injection - ENT ENT exam: normal oropharynx (edentulous), mucous membranes moist - Neck Neck exam: Present: full ROM, trachea midline. Absent: tenderness, lymphadenopathy - Chest Chest inspection: Present: symmetric chest wall rise - Respiratory Respiratory exam: Present: normal lung sounds bilaterally. Absent: respiratory distress, wheezes, prolonged expiratory phase - Cardiovascular Cardiovascular exam: Present: regular rate, normal rhythm. Absent: systolic murmur, diastolic murmur - Abdominal Exam Abdominal exam: Present: soft, Non-Tender, normal bowel sounds. Absent: distention, guarding, rebound - Rectal Exam Rectal exam: Present: deferred - Extremities Exam Extremities exam: Present: normal inspection. Absent: tenderness, pedal edema, calf tenderness - Back Exam Back exam: Absent: tenderness, paraspinal tenderness - Neurological Exam Neurological exam: Present: alert, oriented X3, CN II-XII intact - Expanded Neurological Exam Speech: Present: fluid speech Cranial nerves: EOM function (II, III, IV, ): Normal, facial sensation (V): Normal, facial palsy (VII): Normal, spinal accessory function (XI): Normal, tongue deviation (XII): Normal Cerebellar function: finger to nose: Normal Motor strength - LUE: 5/5 Motor strength - RUE: 5/5 Motor strength - LLE: 5/5 Motor strength - RLE: 5/5 Sensory exam upper extremity: light touch: Normal Sensory exam lower extremity: light touch: Normal Coma Scale Eye Opening: Spontaneous Coma Scale Motor Response: Obeys Commands Coma Scale Verbal Response: Oriented Coma Scale Total: 15 - Psychiatric Psychiatric exam: Present: normal affect, normal mood - Skin Skin exam: Present: warm, dry. Absent: rash, diaphoresis Course Course Narrative: States she has a history of meneires disease, prior mri in 2018 without identified abnormality that was ordered by an ENT. Will evaluate with Head CT without contrast, EKG, chest xray, POC glucose, cbc, and bmp. Will provide Meclizine and zofran. Follow patient status and testing results. - Reevaluation(s) Reevaluation #1: Patient seen and re-evaluated at the bedside. She reports much improvement in symptoms with meclizine and zofran. Urine sample is positive for nitrites, will treat with IV rocephin, although do not suspect that UTI alone is responsible for her current presentation. CBC is pending and will plan to contact hospitalist for admission for further evaluation of dizziness given that patient has fallen now on multiple occassions recently, lives alone, and is having di fficulty during episodes getting to her medication. Time: 10:06 Reevaluation #2: Patient was seen and reevaluated. No acute changes. Patient states that she still feels improved. She remains agreeable to admission for further observation and evaluation. Hospitalist Dr. Blount accepts patient for admission. Time: 12:41 Vital Signs Temperature 97.7 F 12/03/18 07:55 Pulse Rate 73 12/03/18 07:55 Respiratory Rate 18 12/03/18 07:55 Blood Pressure 148/94 12/03/18 07:55 O2 Sat by Pulse Oximetry 100 12/03/18 07:55 Temperature 97.7 F 12/03/18 07:55 Pulse Rate 71 12/03/18 11:00 Respiratory Rate 16 12/03/18 11:00 Blood Pressure 144/79 12/03/18 11:00 O2 Sat by Pulse Oximetry 100 12/03/18 11:00 Oxygen Delivery Oxygen Delivery Room Air Medical Decision Making - [facility] Narrative Medical decision making narrative: Patient with dizziness and prior history of meneires disease. Appears vertiginous in etiology to hpi and physical exam. No focal neurologic deficit identified. Head CT and chest xray negative. Good response to meclizine also suggestive of peripheral etiology. UTI with evidence of infection, however less likely to be sole cause of current symptoms. Recommend admission to hospital for further observation and evaluation as patient lives alone and short term r ecurrence of symptoms seems likely. - Medical Records Medical records reviewed: Yes I reviewed the patient's medical records. - Lab Data Lab results reviewed: Yes I reviewed the patient's lab results. Result diagrams: 12/03/18 08:27 12/03/18 08:27 Lab Results 12/03/18 12/03/18 12/03/18 Range/Units 08:27 08:27 09:05 WBC 5.2 (4.3-11.1) K/mcL RBC 4.11 (3.82-4.97) M/mcL Hgb 14.3 (11.5-15.4) g/dL Hct 40.3 (35.3-44.9) % MCV 98.1 (83.0-100.0) fL MCH 34.8 H (28.0-33.3) pg MCHC 35.5 (31.6-35.5) g/dL RDW 13.7 (11.5-14.5) % Plt Count 192 (140-400) K/mcL MPV 9.8 (9.4-12.4) fL Sodium 134 L (136-145) mEq/L Potassium 3.8 (3.5-5.1) mEq/L Chloride 100 (98-107) mEq/L Carbon Dioxide 25 (23-29) mEq/L BUN 19 (8-23) mg/dL Creatinine 0.66 (0.60-1.20) mg/dL Est GFR ( Amer) > 60 (> 60) Est GFR (Non-Af Amer) > 60 (> 60) BUN/Creatinine Ratio 29 H (6-26) Glucose 182 H (70-105) mg/dL Calculated Osmolality 285 (280-300) Calcium 9.2 (8.6-10.3) mg/dL Total Bilirubin 1.1 H (0.3-1.0) mg/dL Direct Bilirubin 0.2 (0.0-0.2) mg/dL Indirect Bilirubin 0.9 (0.0-1.2) mg/dL AST 28 (13-39) Units/L ALT 40 (7-52) Units/L Alkaline Phosphatase 57 (34-104) Units/L Serum Total Protein 6.3 L (6.4-8.9) g/dL Albumin 3.9 (3.5-5.7) g/dL Globulin 2.4 (2.4-3.5) g/dL Albumin/Globulin Ratio 1.6 (1.1-2.2) Urine Color Yellow (Yellow) Urine Clarity Cloudy A (Clear) Urine pH 6.5 (5.0-8.0) pH Units Ur Specific [place] 1.014 (1.010-1.025) Urine Protein Negative (Neg-Trace) mg/dL Urine Glucose (UA) Normal (Normal) mg/dL Urine Ketones Negative (Negative) mg/dL Urine Blood Trace H (Negative) Urine Nitrite Positive A (Negative) Urine Bilirubin Negative (Negative) Urine Urobilinogen Normal (Normal) mg/dL Ur Leukocyte Esterase Large H (Negative) Urine Microscopic RBC 0-3 (0-3) per hpf Urine Microscopic WBC TNTC H (0-3) per hpf Ur Squamous Epith Cells Moderate H (None-Few) per lpf Urine Bacteria Moderate H (None-Few) per hpf Hyaline Casts Few (None-Few) per lpf - Radiology Data Radiology results reviewed: Yes I reviewed the patient's radiology results. CT/CT head/brain wo con IMPRESSION: 1. No acute intracranial abnormality. XR/XR chest 1V portable IMPRESSION: No acute process. - EKG Data EKG #1 EKG results narrative: EKG with rate of 75, TN interval 156, QRSd 88, QTc 466. Sinus rhythm with normal axis. No ST elevation or depressions. Inverted T wave in lead aVR. EKG shows normal: sinus rhythm Rate: normal Rhythm: NSR [place]/QRS: normal T wave inversions noted in: aVR Interpretation: normal EKG
[2018-12-03] MEDS ORDERED: Ondansetron 4 MG/2 ML VIAL IVP ONE (08:22)
--- NOTE | 2018-12-03 08:24 | Emergency Department Note ---
Disposition Clinical Impression: Vertigo UTI (urinary tract infection) Qualifiers: Urinary tract infection type: site unspecified Hematuria presence: without hematuria Qualified Code(s): N39.0 - Urinary tract infection, site not specified Disposition: Admitted As Inpatient Condition: Good General Adult HPI - General Chief complaint: ED Dizziness Stated complaint: dizziness Time Seen by Provider: 12/03/18 07:49 Source: patient, EMS Limitations: no limitations - History of Present Illness Location: head Pain Scale: 4 Improves with: immobilization Worsens with: movement Associated symptoms: Reports: nausea/vomiting Treatments Prior to Arrival: none - Related Data Home Medications Medication Instructions Recorded Confirmed Simvastatin [Zocor] 20 mg PO HS 03/23/16 07/04/17 glyBURIDE [GlyBURIDE] 5 mg PO QPM 03/23/16 07/04/17 glyBURIDE [GlyBURIDE] 7.5 mg PO QAM 03/23/16 07/04/17 Ascorbate Calcium [Vitamin C] 500 mg PO DAILY 04/02/16 07/04/17 Aspirin Enteric Coated [Aspirin EC] 81 mg PO DAILY 04/02/16 07/04/17 Calcium Carbonate/Vitamin D3 1 each PO DAILY 04/02/16 07/04/17 [Calcium 500-Vit D3 400 Tablet] Ferrous Sulfate 325 mg PO DAILY 04/02/16 07/04/17 Previous Rx's Medication Instructions Recorded Docusate [Colace] 100 mg PO BID PRN #20 capsule 07/07/17 Meclizine HCl [Verticalm] 25 mg PO TID PRN #30 tablet 07/07/17 levoFLOXacin [Levofloxacin] 500 mg PO DAILY 5 Days #5 tablet 07/07/17 Allergies Allergy/AdvReac Type Severity Reaction Status Date / Time Penicillins Allergy See Verified 07/04/17 14:04 Comments sulfabenzamide Allergy See Verified 07/04/17 14:04 Comments Constitutional: Denies: fever, chills Eyes: Denies: vision change ENT ED: Denies: congestion, dysphagia Cardiovascular: Denies: chest pain, palpitations, syncope Respiratory: Denies: cough, wheezes Gastrointestinal: Reports: nausea, vomiting. Denies: abdominal pain, hematemesis Genitourinary: Denies: dysuria Musculoskeletal: Denies: back pain, neck pain Integumentary: Denies: rash Neurological: Reports: vertigo. Denies: headache, numbness, paresthesias Past Medical History - Past Medical History Medical history: Reports: arthritis, diabetes, hyperlipidemia, other Surgical history: Reports: breast surgery, carotid endarterectomy, colectomy Psychiatric history: Reports: no psych history - Social History Smoking Status: Never smoker Smokeless Tobacco Status: No Alcohol use: Reports: none Drug use: Reports: none Physical Exam - General Limitations: no limitations General appearance: alert Course Vital Signs Temperature 97.7 F 12/03/18 07:55 Pulse Rate 73 12/03/18 07:55 Respiratory Rate 18 12/03/18 07:55 Blood Pressure 148/94 12/03/18 07:55 O2 Sat by Pulse Oximetry 100 12/03/18 07:55 Temperature 97.7 F 12/03/18 07:55 Pulse Rate 71 12/03/18 11:00 Respiratory Rate 16 12/03/18 11:00 Blood Pressure 144/79 12/03/18 11:00 O2 Sat by Pulse Oximetry 100 12/03/18 11:00 Oxygen Delivery Oxygen Delivery Room Air Medical Decision Making - Lab Data Result diagrams: 12/03/18 08:27 12/03/18 08:27 Lab Results 12/03/18 12/03/18 12/03/18 Range/Units 08:27 08:27 09:05 WBC 5.2 (4.3-11.1) K/mcL RBC 4.11 (3.82-4.97) M/mcL Hgb 14.3 (11.5-15.4) g/dL Hct 40.3 (35.3-44.9) % MCV 98.1 (83.0-100.0) fL MCH 34.8 H (28.0-33.3) pg MCHC 35.5 (31.6-35.5) g/dL RDW 13.7 (11.5-14.5) % Plt Count 192 (140-400) K/mcL MPV 9.8 (9.4-12.4) fL Sodium 134 L (136-145) mEq/L Potassium 3.8 (3.5-5.1) mEq/L Chloride 100 (98-107) mEq/L Carbon Dioxide 25 (23-29) mEq/L BUN 19 (8-23) mg/dL Creatinine 0.66 (0.60-1.20) mg/dL Est GFR ( Amer) > 60 (> 60) Est GFR (Non-Af Amer) > 60 (> 60) BUN/Creatinine Ratio 29 H (6-26) Glucose 182 H (70-105) mg/dL Calculated Osmolality 285 (280-300) Calcium 9.2 (8.6-10.3) mg/dL Total Bilirubin 1.1 H (0.3-1.0) mg/dL Direct Bilirubin 0.2 (0.0-0.2) mg/dL Indirect Bilirubin 0.9 (0.0-1.2) mg/dL AST 28 (13-39) Units/L ALT 40 (7-52) Units/L Alkaline Phosphatase 57 (34-104) Units/L Serum Total Protein 6.3 L (6.4-8.9) g/dL Albumin 3.9 (3.5-5.7) g/dL Globulin 2.4 (2.4-3.5) g/dL Albumin/Globulin Ratio 1.6 (1.1-2.2) Urine Color Yellow (Yellow) Urine Clarity Cloudy A (Clear) Urine pH 6.5 (5.0-8.0) pH Units Ur Specific [place] 1.014 (1.010-1.025) Urine Protein Negative (Neg-Trace) mg/dL Urine Glucose (UA) Normal (Normal) mg/dL Urine Ketones Negative (Negative) mg/dL Urine Blood Trace H (Negative) Urine Nitrite Positive A (Negative) Urine Bilirubin Negative (Negative) Urine Urobilinogen Normal (Normal) mg/dL Ur Leukocyte Esterase Large H (Negative) Urine Microscopic RBC 0-3 (0-3) per hpf Urine Microscopic WBC TNTC H (0-3) per hpf Ur Squamous Epith Cells Moderate H (None-Few) per lpf Urine Bacteria Moderate H (None-Few) per hpf Hyaline Casts Few (None-Few) per lpf Attestation Statement - Attestation Attestation: I examined this patient and my medical decision-making was reviewed with the DEPUTY CLERK/PA/Advanced Practice Nurse/Resident Physician. I agree with the documented findings, disposition and treatment plan as described except to the extent set forth below. Patient states she has a history of Meniere's disease however in reviewing her past records I see a diagnosis of BPPV the patient did have a normal MRI of her brain one year ago and she presents today with vertigo which was so severe that she has not able to imitate at home. Does have associated nausea and vomiting. She does have some pain behind her right ear. Does have a bruise on her head from a fall. She denies any numbness or weakness of extremities, slurred speech, facial droop, confusion, fever, blood in the urine or stool. No diarrhea. She does not have any drift of either upper extremity and does have normal finger to nose and we do have testing ordered including head CT to rule out bleed and the patient will likely need to be admitted as she lives alone and is not able to ambulate adequately. States has not been to the ER for vertigo for several years. She has seen otolaryngology in the past. I did review her EKG showing normal sinus rhythm with a rate of 75 and without acute ischemic change 0824
[2018-12-03 09:07] LABS: Alanine Aminotransferase 40 Units/L (7-52); Albumin 3.9 g/dL (3.5-5.7); Albumin/Globulin Ratio 1.6 (1.1-2.2); Alkaline Phosphatase 57 Units/L (34-104); Aspartate Amino Transferase 28 Units/L (13-39); BUN/Creatinine Ratio 29 (6-26); Bilirubin,Direct 0.2 mg/dL (0.0-0.2); Bilirubin,Indirect 0.9 mg/dL (0.0-1.2); Bilirubin,Total 1.1 mg/dL (0.3-1.0); Blood Urea Nitrogen 19 mg/dL (8-23); Calcium 9.2 mg/dL (8.6-10.3); Carbon Dioxide 25 mEq/L (23-29); Chloride 100 mEq/L (98-107); Globulin 2.4 g/dL (2.4-3.5); Glucose 182 mg/dL (70-105); Osmolality,Calculated 285 (280-300); Potassium 3.8 mEq/L (3.5-5.1); Sodium 134 mEq/L (136-145); Total Protein 6.3 g/dL (6.4-8.9); eGFR For Non-African Americans > 60 (> 60)
[2018-12-03 09:13] LABS: Bilirubin,Urine Negative (Negative); Blood,Urine Trace (Negative); Clarity,Urine Cloudy (Clear); Color,Urine Yellow (Yellow); Glucose,Urine (UA) Normal (Normal); Ketones,Urine Negative (Negative); Leukocyte Esterase,Urine Large (Negative); Nitrite,Urine Positive (Negative); PH,Urine 6.5 pH Units (5.0-8.0); Protein,Urine Negative (Neg-Trace); Specific Gravity,Urine 1.014 (1.010-1.025); Urobilinogen,Urine Normal (Normal)
[2018-12-03 09:18] LABS: Bacteria,Urine Moderate per hpf (None-Few); Hyaline Casts,Urine Few per lpf (None-Few); RBC,Urine 0-3 per hpf (0-3); Squamous Epithelial Cell,Urine Moderate per lpf (None-Few); WBC,Urine TNTC per hpf (0-3)
[2018-12-03] MEDS ORDERED: cefTRIAXone 1,000 MG in Water for inj. (sterile) 20 ML 10 ML IVP ONE (10:02)
[2018-12-03 11:24] LABS: Hematocrit 40.3 % (35.3-44.9); Hemoglobin 14.3 g/dL (11.5-15.4); Mean Corpuscular Hemoglobin 34.8 pg (28.0-33.3); Mean Corpuscular Volume 98.1 fL (83.0-100.0); Mean Platelet Volume 9.8 fL (9.4-12.4); Platelet Count 192 K/mcL (140-400); Red Blood Count 4.11 M/mcL (3.82-4.97); Red Cell Distribution Width 13.7 % (11.5-14.5)
[2018-12-03 11:25] LABS: Mean Corpuscular HGB Conc 35.5 g/dL (31.6-35.5)
[2018-12-03] MEDS ORDERED: Acetaminophen 325 MG TABLET PO PRN (15:20)
[2018-12-03] MEDS ORDERED: Naloxone 0.4 MG/ML INJ IVP PRN (15:20)
[2018-12-03] MEDS ORDERED: Ondansetron 4 MG/2 ML VIAL IVP PRN (15:20)
[2018-12-03] MEDS ORDERED: D5% in Water 1,000 ML IVC PRN (15:27)
[2018-12-03] MEDS ORDERED: *HR* Dextrose 50 % in Water (Syg) 50 ML SYRINGE IVP PRN (15:27)
[2018-12-03] MEDS ORDERED: Dextrose Gel 15 GM/37.5 ML TUBE PO PRN ×2 (15:27)
[2018-12-03] MEDS ORDERED: diazePAM 5 MG TABLET PO PRN (15:29)
[2018-12-03] MEDS: *HR* LORazepam 1 MG TABLET PO SCH ×2 (17:09→21:04)
[2018-12-03] MEDS: Insulin LISPRO 300 UNITS/3 ML VIAL SQ SCH ×2 (17:29→22:46)
--- NOTE | 2018-12-03 17:31 | Internal Med History&Physical ---
Date of Encounter: 12/03/18 Time of Encounter: 15:00 Internal Medicine - H&P: HPI Chief complaint: Dizziness Admitted From: Home Plans for Post Hospital Care: Home History of present illness: Ms. Ambriz is a 78 year old female sent to ER by EMS for dizziness and fall at home. Past medical history is significant for diabetes and chronic Meniere disease. Patient has history of Meniere disease and has increased dizziness today. Patient fells at home with forehead injury. Patient denies loss of consciousness. Patient has increased nausea and vomited several times. The vomiting are stomach content, without blood in it. Patient denies fever. In the emergency room, CT head negative. Patient was a found UA positive for UTI, patient denies dysuria but complaining of increased the frequency and the feeling of fullness. Patient denies flank pain. Patient was admitted for vertigo, UTI, worsening Meniere disease, and fall at home. Past Med Surg Social Fam HX - Past Medical History Medical history: arthritis, diabetes, hyperlipidemia, other Additional medical history: vertigo Psychiatric history: no psych history - Past Surgical History Surgical History: breast surgery, carotid endarterectomy, colectomy Additional surgical history: hysterectomy - Social History Smoking Status: Never smoker Smokeless Tobacco Status: No Alcohol use: none Drug use: none - Family History Mother Living Status: Hx Family Cardiac Disorders: Yes Father Living Status: Hx Family Endocrine Disorder: Yes (DM) Internal Medicine - H&P: Meds Simvastatin [Zocor] 20 mg PO HS 03/23/16 [History] glyBURIDE [GlyBURIDE] 5 mg PO QPM 03/23/16 [History] glyBURIDE [GlyBURIDE] 7.5 mg PO QAM 03/23/16 [History] Ascorbate Calcium [Vitamin C] 500 mg PO DAILY 04/02/16 [History] Aspirin Enteric Coated [Aspirin EC] 81 mg PO DAILY 04/02/16 [History] Calcium Carbonate/Vitamin D3 [Calcium 500-Vit D3 400 Tablet] 1 each PO DAILY 04/02/16 [History] Ferrous Sulfate 325 mg PO DAILY 04/02/16 [History] Docusate [Colace] 100 mg PO BID PRN #20 capsule 07/07/17 [Rx] Meclizine HCl [Verticalm] 25 mg PO TID PRN #30 tablet 07/07/17 [Rx] levoFLOXacin [Levofloxacin] 500 mg PO DAILY 5 Days #5 tablet 07/07/17 [Rx] Citalopram [CeleXA] 20 mg PO DAILY 12/03/18 [History] Glimepiride [Amaryl] 4 mg PO DAILY 12/03/18 [History] LORazepam [Ativan] 0.5 mg PO QID 12/03/18 [History] Allergy/AdvReac Type Severity Reaction Status Date / Time Penicillins Allergy See Verified 07/04/17 14:04 Comments sulfabenzamide Allergy See Verified 07/04/17 14:04 Comments All Systems PM: A 10-system review of systems was performed and is negative for pertinent findings except as documented above in the HPI. - Constitutional Vitals: Temp Pulse Resp BP Pulse Ox 98.9 F 78 14 127/70 99 12/03/18 15:37 12/03/18 15:37 12/03/18 15:37 12/03/18 15:37 12/03/18 15:37 Exam: Pt is AAO x 3, in NAD HEENT: NC, small bruise on forehead, no active bleeding, PERRL, hearing loss Neck: Supple, no JVD, no LAD Lungs: CTA b/l Heart: S1S2, RRR Abd: Soft, nontender, BS present Ext: ROM wnl, no pedal edema Neuro: No focal deficit Internal Med - H&P Results - Labs CBC & Chem 7: 12/03/18 08:27 12/03/18 08:27 Labs: Short CBC 12/03/18 Range/Units 08:27 WBC 5.2 (4.3-11.1) K/mcL Hgb 14.3 (11.5-15.4) g/dL Hct 40.3 (35.3-44.9) % Plt Count 192 (140-400) K/mcL BMP 12/03/18 08:27 Sodium 134 L Potassium 3.8 Chloride 100 Carbon Dioxide 25 BUN 19 Creatinine 0.66 Glucose 182 H Calcium 9.2 Liver Function 12/03/18 Range/Units 08:27 Total Bilirubin 1.1 H (0.3-1.0) mg/dL Direct Bilirubin 0.2 (0.0-0.2) mg/dL AST 28 (13-39) Units/L ALT 40 (7-52) Units/L Alkaline Phosphatase 57 (34-104) Units/L Albumin 3.9 (3.5-5.7) g/dL Urine 12/03/18 Range/Units 09:05 Urine Color Yellow (Yellow) Urine Clarity Cloudy A (Clear) Urine pH 6.5 (5.0-8.0) pH Units Ur Specific [place] 1.014 (1.010-1.025) Urine Protein Negative (Neg-Trace) mg/dL Urine Glucose (UA) Normal (Normal) mg/dL - Impressions ITS Impressions Chest X-Ray 12/03/18 08:20 IMPRESSION: No acute process. D/ / Zuleyma Sanchez MD / Zuleyma Sanchez MD Interpreting Provider: Zuleyma Sanchez MD Head CT 12/03/18 08:20 IMPRESSION: 1. No acute intracranial abnormality. D/ / Pavel Wiggins MD / Pavel Wiggins MD Interpreting Provider: Pavel Wiggins MD - Assessment and Plan (1) Meniere disease Current Visit: Yes Status: Acute Assessment and plan: Hx of Meniere disease. Has worsening dizziness. - Continue symptomatic treatment. - Consider ENT consult if symptoms not improved Qualifiers: Laterality: unspecified laterality Qualified Code(s): H81.09 - Meniere's disease, unspecified ear (2) UTI (urinary tract infection) Current Visit: Yes Status: Acute Assessment and plan: Patient has no fever or white count. Mild urination symptoms. - Continue Rocephin IV 1000 mg daily - Follow up urine culture Qualifiers: Urinary tract infection type: acute cystitis Hematuria presence: without hematuria Qualified Code(s): N39.0 - Urinary tract infection, site not specified (3) Vertigo Current Visit: Yes Status: Acute Assessment and plan: Most likely due to Meniere disease. However, patient has worsening vertigo today, will order MRI to rule out Central vertigo (4) DVT prophylaxis Current Visit: No Status: Acute Assessment and plan: Heparin subcutaneously (5) Nausea & vomiting Current Visit: No Status: Acute Assessment and plan: Due to dizziness. Continue zofran as needed. Qualifiers: Vomiting type: unspecified Vomiting Intractability: unspecified Qualified Code(s): R11.2 - Nausea with vomiting, unspecified (6) Fall Current Visit: Yes Status: Acute Assessment and plan: Pt lives alone. Has fall and head injury at home. - Fall precaution - PTOT evaluation for safe discharge Qualifiers: Encounter type: initial encounter Qualified Code(s): W19.XXXA - Unspecified fall, initial encounter - Time Spent With Patient Total time spent is greater than 50% in coordination of care (as documented) at patient's floor/unit and/or counseling patient: 40 minutes Greater than 35 minutes
[2018-12-03] MEDS: *HR* Heparin 5,000 UNIT/ML VIAL SQ SCH (18:38)
[2018-12-04 02:21] LABS: Basophils % 0.7 %
[2018-12-04 02:35] LABS: BUN/Creatinine Ratio 26 (6-26); Blood Urea Nitrogen 19 mg/dL (8-23); Calcium 9.2 mg/dL (8.6-10.3); Carbon Dioxide 26 mEq/L (23-29); Chloride 103 mEq/L (98-107); Glucose 91 mg/dL (70-105); Magnesium 2.2 mg/dL (1.6-2.6); Osmolality,Calculated 284 (280-300); Sodium 136 mEq/L (136-145); eGFR For Non-African Americans > 60 (> 60)
[2018-12-04 02:54] LABS: Basophils # 0.1 K/mcL (0.0-0.2); Eosinophils # 0.1 K/mcL (0.0-0.6); Eosinophils % 0.8 %; Immature Granulocytes % 0.4 % (0-4); Immature Platelets 5.1 % (1.1-6.1); Lymphocytes # 2.1 K/mcL (0.6-4.6); Lymphocytes % 28.3 %; Mean Platelet Volume 10.3 fL (9.4-12.4); Monocytes # 0.8 K/mcL (0.0-1.3); Monocytes % 10.9 %; Neutrophils # 4.4 K/mcL (1.6-8.9); Platelet Count 175 K/mcL (140-400); Segmented Neutrophils % 58.9 %
[2018-12-04 05:10] LABS: Hematocrit 43.3 % (35.3-44.9); Hemoglobin 14.1 g/dL (11.5-15.4); Mean Corpuscular Hemoglobin 33.4 pg (28.0-33.3); Mean Corpuscular Volume 102.6 fL (83.0-100.0); Red Blood Count 4.22 M/mcL (3.82-4.97)
[2018-12-04 05:11] LABS: Mean Corpuscular HGB Conc 32.6 g/dL (31.6-35.5)
[2018-12-04 05:13] LABS: Platelet Estimate Normal (Normal); Reactive Lymphocytes Present (Not Present)
[2018-12-04] MEDS: *HR* Heparin 5,000 UNIT/ML VIAL SQ SCH ×2 (05:16→18:12)
[2018-12-04] MEDS: cefTRIAXone 1,000 MG in Water for inj. (sterile) 20 ML 10 ML IVP SCH (08:31)
[2018-12-04] MEDS: *HR* LORazepam 1 MG TABLET PO SCH ×4 (08:31→22:09)
[2018-12-04] MEDS: Aspirin Enteric Coated 81 MG Tablet PO SCH (08:31)
[2018-12-04] MEDS: Insulin LISPRO 300 UNITS/3 ML VIAL SQ SCH ×4 (08:32→22:06)
--- NOTE | 2018-12-04 17:49 | Internal Med Progress Note ---
Hospitalist Progress Note - Encounter Date of Encounter: 12/04/18 Time of Encounter: 09:00 - Subjective Interval History: Patient feels dizziness has improved. No nausea or vomiting. No further fall. PTOT evaluation recommend home discharge with home health. - Exam Vitals: Temp Pulse Resp BP Pulse Ox 97.7 F 77 14 130/67 96 12/04/18 15:11 12/04/18 15:11 12/04/18 15:11 12/04/18 15:11 12/04/18 15:11 Exam: Pt is AAO x 3, in NAD HEENT: NC, small bruise on forehead, no active bleeding, PERRL, hearing loss Neck: Supple, no JVD, no LAD Lungs: CTA b/l Heart: S1S2, RRR Abd: Soft, nontender, BS present Ext: ROM wnl, no pedal edema Neuro: No focal deficit - Assessment and Plan (1) Meniere disease Current Visit: Yes Status: Acute Assessment and Plan: Hx of Meniere disease. Has worsening dizziness. - Continue symptomatic treatment. - Consult ENT (2) UTI (urinary tract infection) Current Visit: Yes Status: Acute Assessment and Plan: Patient has no fever or white count. Mild urination symptoms. - Continue Rocephin IV 1000 mg daily - Follow up urine culture (3) Vertigo Current Visit: Yes Status: Acute Assessment and Plan: Most likely due to Meniere disease. MRI negative for infarct (4) DVT prophylaxis Current Visit: No Status: Acute Assessment and Plan: Heparin subcutaneously (5) Nausea & vomiting Current Visit: No Status: Acute Assessment and Plan: Due to dizziness. Continue zofran as needed. Patient has no further nausea vomiting today (6) Fall Current Visit: Yes Status: Acute Assessment and Plan: Pt lives alone. Has fall and head injury at home. - Fall precaution - PTOT evaluation recommend home discharge with home health - Time Spent with Patient Total time spent is greater than 50% in coordination of care (as documented) at patient's floor/unit and/or counseling patient: 30 minutes 25 - 35 minutes Plan of Care Discussed with: patient Internal Medicine: Result - Labs CBC & Chem 7: 12/04/18 01:51 12/04/18 01:51 Labs: Short CBC 12/04/18 Range/Units 01:51 WBC 7.5 (4.3-11.1) K/mcL Hgb 14.1 (11.5-15.4) g/dL Hct 43.3 (35.3-44.9) % Plt Count 175 (140-400) K/mcL Neutrophils # 4.4 (1.6-8.9) K/mcL BMP 12/04/18 01:51 Sodium 136 Potassium 4.0 Chloride 103 Carbon Dioxide 26 BUN 19 Creatinine 0.72 Glucose 91 Calcium 9.2 - Impressions Impressions Brain MRI 12/03/18 15:31 IMPRESSION: 1. No acute intracranial abnormality. 2. Senescent parenchymal volume loss with mild chronic white matter microvascular ischemic changes. 3. Right maxillary sinus opacification with central T2 hypointensity raising possibility of chronic fungal infection. D/ / Trent Ball / Trent Ball Interpreting Provider: Trent Ball Consult Discharge Plan - Plan Referrals: Mario Rojas DO [Primary Care Provider] - (Please call and make follow up appointment for 7-10 days from date of discharge. ) (1) Meniere disease Qualifiers: Laterality: unspecified laterality Qualified Code(s): H81.09 - Meniere's disease, unspecified ear (2) UTI (urinary tract infection) Qualifiers: Urinary tract infection type: acute cystitis Hematuria presence: without hematuria Qualified Code(s): N39.0 - Urinary tract infection, site not specified (5) Nausea & vomiting Qualifiers: Vomiting type: unspecified Vomiting Intractability: unspecified Qualified Code(s): R11.2 - Nausea with vomiting, unspecified (6) Fall Qualifiers: Encounter type: initial encounter Qualified Code(s): W19.XXXA - Unspecified fall, initial encounter
--- NOTE | 2018-12-04 18:39 | ENT - Consult Note ---
Date of Encounter: 12/04/18 Time of Encounter: 16:30 Assessment and Plan (1) Meniere's disease Current Visit: Yes Status: Acute White female with activation of Meniere's disease probably in both ears probably more the left than the right for comparison of previous audio to current hearing evaluations to determine how much hearing she is loss since the last hearing test also recommending consider [facility] institution as well as repeat counseling on dietary restrictions including salt junk carbohydrates and alcohol patient also needs to practice safe movements and avoid unnecessary risk as falls at this age can be significantly detrimental Qualifiers: Qualified Code(s): H81.09 - Meniere's disease, unspecified ear Code(s): H81.09 - Meniere's disease, unspecified ear SNOMED Code(s): 24099692 History of Present Illness History of present illness: White female 78 years of age with several years of known Meniere's disease diagnosed in the right ear now probably progressing into her left ear under originally symptoms were primarily right sided more recently she stent well until the last couple weeks when she has had several episodes of dizziness lasting 2-1/2 hours with ear pressure tinnitus and decreased hearing consistent with recurrent Meniere's she is currently unremarkable she is using a hearing aid in her left ear she has had previous audiological evaluations and management of her Meniere's through [facility] she has not on any medications not using diuretics I believe she manages this primarily with diet recommending avoidance of alcohol carbohydrates i.e. junk food and salt we have offered her a follow-up evaluation in the office here and will give this information to the schedulers to set her up for an office in the near future for audiometric assessment she should obtain her previous audios for comparison and consider institution of [facility] Past Med Surg Social Fam HX - Past Medical History Medical history: arthritis, diabetes, hyperlipidemia, other Additional medical history: vertigo Psychiatric history: no psych history - Past Surgical History Surgical History: breast surgery, carotid endarterectomy, colectomy Additional surgical history: hysterectomy - Social History Smoking Status: Never smoker Smokeless Tobacco Status: No Alcohol use: none Drug use: none - Family History Mother Living Status: Hx Family Cardiac Disorders: Yes Father Living Status: Hx Family Endocrine Disorder: Yes (DM) Medications and Allergies Simvastatin [Zocor] 20 mg PO HS 03/23/16 [History] Ascorbate Calcium [Vitamin C] 500 mg PO DAILY 04/02/16 [History] Ferrous Sulfate 325 mg PO DAILY 04/02/16 [History] Aspirin [Lo-Dose Aspirin EC] 81 mg PO DAILY 12/03/18 [History] Calcium Carbonate/Vitamin D3 [Calcium 600 + Vit D Tablet] 1 tab PO DAILY 12/03/18 [History] Citalopram [CeleXA] 20 mg PO DAILY 12/03/18 [History] Cyanocobalamin (B-12) [Vitamin B12] 1,000 mcg IM QMONTH 12/03/18 [History] Docusate Sodium [Stool Softener] 100 mg PO 1-2XD PRN 12/03/18 [History] Glimepiride [Amaryl] 4 mg PO DAILY 12/03/18 [History] LORazepam [Ativan] 0.5 mg PO QID 12/03/18 [History] Mv-Mn/Folic Acid/Calcium/Vit K [Hm One Daily Women's 50+] 1 tab PO DAILY 12/03/18 [History] Psyllium Husk [Metamucil] 1 each PO DAILY 12/03/18 [History] Allergy/AdvReac Type Severity Reaction Status Date / Time Penicillins Allergy See Verified 07/04/17 14:04 Comments sulfabenzamide Allergy See Verified 07/04/17 14:04 Comments ENT Exam Initial Vital Signs Temp Pulse Resp BP Pulse Ox 97.7 F 73 18 148/94 100 12/03/18 07:55 12/03/18 07:55 12/03/18 07:55 12/03/18 07:55 12/03/18 07:55 - General physical appearance well developed, well nourished, no distress, no pain. negative: moderate distress, severe distress, moderate pain, severe pain, cachectic, obese - Eyes PERRL, normal ocular movement, icteric - ENT normal pinna, normal nares, normal mucosa, no congestion, decreased hearing, Other (Patient using a left ear hearing device probably less than optimal). negative: deviated nasal septum, nasal discharge, poor residential, dentures, mucosal exudate, dry mucosa - Neck no masses, trachea midline, no lymphadectomy. negative: deviated trachea, diffuse goiter, limited ROM - Respiratory normal expansion, normal respiratory effort, clear to percussion, clear to auscultation Exam Initial Vital Signs Temp Pulse Resp BP Pulse Ox 97.7 F 73 18 148/94 100 12/03/18 07:55 12/03/18 07:55 12/03/18 07:55 12/03/18 07:55 12/03/18 07:55 Results - Labs 12/04/18 01:51 12/04/18 01:51 Abnormal lab results MCV 102.6 fL (83.0-100.0) H 12/04/18 01:51 MCH 33.4 pg (28.0-33.3) H 12/04/18 01:51 Reactive Lymphocytes Present (Not Present) A 12/04/18 01:51 POC Glucose 161 mg/dL (70-99) H 12/03/18 19:56 Total Bilirubin 1.1 mg/dL (0.3-1.0) H 12/03/18 08:27 Serum Total Protein 6.3 g/dL (6.4-8.9) L 12/03/18 08:27 Urine Clarity Cloudy (Clear) A 12/03/18 09:05 Urine Blood Trace (Negative) H 12/03/18 09:05 Urine Nitrite Positive (Negative) A 12/03/18 09:05 Ur Leukocyte Esterase Large (Negative) H 12/03/18 09:05 Urine Microscopic WBC TNTC per hpf (0-3) H 12/03/18 09:05 Ur Squamous Epith Cells Moderate per lpf (None-Few) H 12/03/18 09:05 Urine Bacteria Moderate per hpf (None-Few) H 12/03/18 09:05 Diabetes panel 12/04/18 Range/Units 01:51 Sodium 136 (136-145) mEq/L Potassium 4.0 (3.5-5.1) mEq/L Chloride 103 (98-107) mEq/L Carbon Dioxide 26 (23-29) mEq/L BUN 19 (8-23) mg/dL Creatinine 0.72 (0.60-1.20) mg/dL Glucose 91 (70-105) mg/dL Calcium 9.2 (8.6-10.3) mg/dL Calcium panel 12/04/18 Range/Units 01:51 Calcium 9.2 (8.6-10.3) mg/dL Pituitary panel 12/04/18 Range/Units 01:51 Sodium 136 (136-145) mEq/L Potassium 4.0 (3.5-5.1) mEq/L Chloride 103 (98-107) mEq/L Carbon Dioxide 26 (23-29) mEq/L BUN 19 (8-23) mg/dL Creatinine 0.72 (0.60-1.20) mg/dL Glucose 91 (70-105) mg/dL Calcium 9.2 (8.6-10.3) mg/dL Adrenal panel 12/04/18 Range/Units 01:51 Sodium 136 (136-145) mEq/L Potassium 4.0 (3.5-5.1) mEq/L Chloride 103 (98-107) mEq/L Carbon Dioxide 26 (23-29) mEq/L BUN 19 (8-23) mg/dL Creatinine 0.72 (0.60-1.20) mg/dL Glucose 91 (70-105) mg/dL Calcium 9.2 (8.6-10.3) mg/dL All other labs normal. Consult Discharge Plan - Plan Referrals: Mario Rojas DO [Primary Care Provider] - (Please call and make follow up appointment for 7-10 days from date of discharge. )
[2018-12-05] MEDS: *HR* Heparin 5,000 UNIT/ML VIAL SQ SCH (05:37)
[2018-12-05 07:01] VITALS: BP 134/73
[2018-12-05] MEDS: Insulin LISPRO 300 UNITS/3 ML VIAL SQ SCH (07:31)
[2018-12-05] MEDS: *HR* LORazepam 1 MG TABLET PO SCH (08:06)
[2018-12-05] MEDS: Aspirin Enteric Coated 81 MG Tablet PO SCH (08:06)
[2018-12-05] MEDS: cefTRIAXone 1,000 MG in Water for inj. (sterile) 20 ML 10 ML IVP SCH (08:07)
--- NOTE | 2018-12-05 10:52 | Discharge Summary ---
- NOTES TO OUTPATIENT PROVIDER Notes to Outpatient Provider: 1. F/U with PCP on Friday to establish home health. 2. Please f/u with urine culture. Orders not resulted at time of discharge: Pending orders 12/03/18 09:05 Culture,Urine [RM] Stat Date of Encounter: 12/05/18 Time of Encounter: 10:00 - Discharge Diagnosis (1) Meniere disease Priority: Primary Status: Acute Qualifiers: Laterality: unspecified laterality Qualified Code(s): H81.09 - Meniere's disease, unspecified ear (2) UTI (urinary tract infection) Priority: Primary Status: Acute Qualifiers: Urinary tract infection type: acute cystitis Hematuria presence: without hematuria Qualified Code(s): N39.0 - Urinary tract infection, site not specified (3) Vertigo Priority: Primary Status: Acute (4) DVT prophylaxis Priority: Secondary Status: Acute (5) Nausea & vomiting Priority: Secondary Status: Acute Qualifiers: Vomiting type: unspecified Vomiting Intractability: unspecified Qualified Code(s): R11.2 - Nausea with vomiting, unspecified (6) Fall Priority: Primary Status: Acute Qualifiers: Encounter type: initial encounter Qualified Code(s): W19.XXXA - Unspecified fall, initial encounter Hospital course: Ms. Ambriz is a 78 year old female admitted for vertigo and fall at home. Patient has a history of Meniere disease and chronic vertigo. Patient had MRI done, negative for infarct. ENT consult saw patient. No specific treatment, recommend dietary restriction for junkfood and high salt. Patient feels much better after treatment. No further nausea vomiting or dizziness. PTOT saw patient and recommend home health. However, patient's home health need to be established by her PCP. Patient asked to go home. Her neighbor will wash her frequently before she goes to see PCP. Patient understand the risks of fall at home and said she will keep her cell phone with her and call for help if needed. I have seen and examined the patient today. Patient is awake alert, oriented 3. In no acute distress. Denies dizziness, nausea, or vomiting. Vitals are stable. Will DC patient home and established home health by PCP. Patient will follow-up with ENT as outpatient as well. Patient has UTI. Symptoms resolved. Will continue by mouth antibiotic to finish 5 day course. Discharge discussed with: patient, other (Pt's neighbor who keeping help her) - Time Spent with Patient Total time spent providing and/or coordinating discharge services: 40 min Time spent: Greater than 30 minutes - Discharge Medications Prescriptions: Continue Simvastatin [Zocor] 20 mg PO HS Ferrous Sulfate 325 mg PO DAILY Ascorbate Calcium [Vitamin C] 500 mg PO DAILY LORazepam [Ativan] 0.5 mg PO QID Citalopram [CeleXA] 20 mg PO DAILY Glimepiride [Amaryl] 4 mg PO DAILY Aspirin [Lo-Dose Aspirin EC] 81 mg PO DAILY Calcium Carbonate/Vitamin D3 [Calcium 600 + Vit D Tablet] 1 tab PO DAILY Cyanocobalamin (B-12) [Vitamin B12] 1,000 mcg IM QMONTH Docusate Sodium [Stool Softener] 100 mg PO 1-2XD PRN PRN Reason: Constipation Mv-Mn/Folic Acid/Calcium/Vit K [ One Daily Women's 50 Plus] 1 tab PO DAILY Psyllium Husk [Metamucil] 1 each PO DAILY Home Medications: Simvastatin [Zocor] 20 mg PO HS 03/23/16 [History] Ascorbate Calcium [Vitamin C] 500 mg PO DAILY 04/02/16 [History] Ferrous Sulfate 325 mg PO DAILY 04/02/16 [History] Aspirin [Lo-Dose Aspirin EC] 81 mg PO DAILY 12/03/18 [History] Calcium Carbonate/Vitamin D3 [Calcium 600 + Vit D Tablet] 1 tab PO DAILY 12/03/18 [History] Citalopram [CeleXA] 20 mg PO DAILY 12/03/18 [History] Cyanocobalamin (B-12) [Vitamin B12] 1,000 mcg IM QMONTH 12/03/18 [History] Docusate Sodium [Stool Softener] 100 mg PO 1-2XD PRN 12/03/18 [History] Glimepiride [Amaryl] 4 mg PO DAILY 12/03/18 [History] LORazepam [Ativan] 0.5 mg PO QID 12/03/18 [History] Mv-Mn/Folic Acid/Calcium/Vit K [ One Daily Women's 50 Plus] 1 tab PO DAILY 12/03/18 [History] Psyllium Husk [Metamucil] 1 each PO DAILY 12/03/18 [History] Allergies/Adverse Reactions: Allergy/AdvReac Type Severity Reaction Status Date / Time Penicillins Allergy See Verified 07/04/17 14:04 Comments sulfabenzamide Allergy See Verified 07/04/17 14:04 Comments Date of admission: 12/03/18 12:44 Primary care physician: Mario Rojas Consults: 12/03/18 15:23 Consult to Occupational Therapy [CONS] Routine Comment: Evaluate, develop and implement POC Reason for Consult: Fall at home Does patient have active BEDREST order?: No Is patient medically & hemodynamically stable?: Yes Consult to Physical Therapy [CONS] Routine Comment: Evaluate, develop and implement POC Reason for Consult: Fall at home Does patient have active BEDREST order?: No Is patient medically & hemodynamically stable?: Yes 12/04/18 08:13 Consult to ENT [CONS] Routine Consulting Provider: JACY Morelos Reason for Consult: Meniere disease, vertigo Call Completed: Yes Discharging clinician: Grey Rendon Anticipated date of discharge: 12/05/18 - Constitutional Vitals: Temp Pulse Resp BP Pulse Ox 98.1 F 67 17 134/73 98 12/05/18 06:59 12/05/18 06:59 12/05/18 06:59 12/05/18 06:59 12/05/18 06:59 Exam: Pt is AAO x 3, in NAD HEENT: NC, small bruise on forehead, no active bleeding, PERRL, hearing loss Neck: Supple, no JVD, no LAD Lungs: CTA b/l Heart: S1S2, RRR Abd: Soft, nontender, BS present Ext: ROM wnl, no pedal edema Neuro: No focal deficit - Patient Status Disposition: Home Health Service Condition: Good Functional capacity at discharge: uses cane/walker Overall status at discharge: patient is back to baseline - Discharge Instructions Follow Up With: Mario Rojas DO [Primary Care Provider] - 12/07/18 (Please make appointment as early as possible to establish home health. It is best on Friday.) - Diet and Activity Activity: increase activity as tolerated Diet: diabetic diet, low fat, low cholesterol, low salt diet
--- NOTE | 2018-12-05 11:04 | Physician Discharge Referral ---
Home Health/Hosp Referral Info Transfer to: Home Health Provider in Charge Post Discharge: PCP - Diagnosis (1) Meniere disease Status: Acute (2) UTI (urinary tract infection) Status: Acute (3) Vertigo Status: Acute (4) DVT prophylaxis Status: Acute (5) Nausea & vomiting Status: Acute (6) Fall Status: Acute - Respiratory Orders Smoking Cessation: Smoking cessation has been advised. For more information, call the [place] Tobacco Quit Line at 2-967-TKUF-NOW. - Transfer Medications Home Medications: Simvastatin [Zocor] 20 mg PO HS 03/23/16 [History] Ascorbate Calcium [Vitamin C] 500 mg PO DAILY 04/02/16 [History] Ferrous Sulfate 325 mg PO DAILY 04/02/16 [History] Aspirin [Lo-Dose Aspirin EC] 81 mg PO DAILY 12/03/18 [History] Calcium Carbonate/Vitamin D3 [Calcium 600 + Vit D Tablet] 1 tab PO DAILY 12/03/18 [History] Citalopram [CeleXA] 20 mg PO DAILY 12/03/18 [History] Cyanocobalamin (B-12) [Vitamin B12] 1,000 mcg IM QMONTH 12/03/18 [History] Docusate Sodium [Stool Softener] 100 mg PO 1-2XD PRN 12/03/18 [History] Glimepiride [Amaryl] 4 mg PO DAILY 12/03/18 [History] LORazepam [Ativan] 0.5 mg PO QID 12/03/18 [History] Mv-Mn/Folic Acid/Calcium/Vit K [Hm One Daily Women's 50 Plus] 1 tab PO DAILY 12/03/18 [History] Psyllium Husk [Metamucil] 1 each PO DAILY 12/03/18 [History] Ciprofloxacin HCl [Cipro] 250 mg PO BID 3 Days #6 tab 12/05/18 [Rx] Allergies/Adverse Reactions: Allergy/AdvReac Type Severity Reaction Status Date / Time Penicillins Allergy See Verified 07/04/17 14:04 Comments sulfabenzamide Allergy See Verified 07/04/17 14:04 Comments Certification: Further, I certify that my clinical findings support that this patient is homebound (i.e. absences from home require considerable and taxing effort and are for medical reasons or baptism services or infrequently or short duration when for other reasons) because: Homebound Reason: Patient requires assistance of a person or device to safely leave home Attestation: My signature below is to certify that this patient is under my care and that I, or nurse practitioner, or a physician's construction project assistant working with me, has a [id number] encounter with this patient.
--- NOTE | 2018-12-05 14:38 | Electrocardiograph Report ---
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
== END 2018-12-05 13:23 | disposition home health service (06) ==
LOC: 3BNU 07:48 → EMEROOARM 07:48 → 3BNU 14:25
PROVIDERS: ADMIT Internal Medicine; ATTEND Internal Medicine

== ENCOUNTER 2020-12-13 17:25 | Inpatient (IN) ==
[2020-12-13] MEDS ORDERED: 0.9 % Sodium Chloride 1,000 ML IVC ONE ×2 (18:41→20:45)
[2020-12-13] MEDS ORDERED: cefTRIAXone 1,000 MG in Water for inj. (sterile) 10 ML IVP ONE (19:11)
[2020-12-13 19:29] LABS: INR 1.2; Prothrombin Time 13.3 Seconds (9.4-12.1)
[2020-12-13 19:31] LABS: Activated Partial Thrombo Time 28.3 Seconds (26.0-36.0)
[2020-12-13 19:42] LABS: Alanine Aminotransferase 19 Units/L (7-52); Albumin/Globulin Ratio 1.5 (1.1-2.2); Alkaline Phosphatase 60 Units/L (34-104); Aspartate Amino Transferase 22 Units/L (13-39); BUN/Creatinine Ratio 26 (6-26); Bilirubin,Direct 0.1 mg/dL (0.0-0.2); Bilirubin,Indirect 0.9 mg/dL (0.0-1.0); Blood Urea Nitrogen 17 mg/dL (8-23); Calcium 9.3 mg/dL (8.6-10.3); Carbon Dioxide 25 mEq/L (23-29); Chloride 100 mEq/L (98-107); Creatine Kinase 116 Units/L (30-223); Globulin 2.6 g/dL (2.4-3.5); Glucose 133 mg/dL (70-105); Lipase 14 Units/L (11-82); Osmolality,Calculated 277 (280-300); Potassium 3.8 mEq/L (3.5-5.1); Sodium 132 mEq/L (136-145); Total Protein 6.6 g/dL (6.4-8.9); Troponin I < 0.03 ng/mL (< 0.04); eGFR For African Americans > 60 (> 60); eGFR For Non-African Americans > 60 (> 60)
[2020-12-13 20:32] LABS: Bacteria,Urine Few per hpf (None-Few); Bilirubin,Urine Negative (Negative); Blood,Urine Trace (Negative); Clarity,Urine Clear (Clear); Color,Urine Light-Yellow (Yellow); Glucose,Urine (UA) Normal (Normal); Ketones,Urine Negative (Negative); Leukocyte Esterase,Urine Negative (Negative); Nitrite,Urine Negative (Negative); PH,Urine 7.5 pH Units (5.0-8.0); Protein,Urine Negative (Neg-Trace); RBC,Urine 15-30 per hpf (0-3); Specific Gravity,Urine 1.015 (1.010-1.025); Squamous Epithelial Cell,Urine Few per hpf (None-Few); Urobilinogen,Urine Normal (Normal); WBC,Urine 0-3 per hpf (0-3)
[2020-12-13] MEDS ORDERED: Isovue-370 500 ML BOTTLE IVP ONE (20:45)
[2020-12-13 21:33] LABS: Adenovirus Not Detected (Not Detect); Bordetella Pertussis Not Detected (Not Detect); Chlamydophila pneumoniae Not Detected (Not Detect); Coronavirus 229E Not Detected (Not Detect); Coronavirus HKU1 Not Detected (Not Detect); Coronavirus NL63 Not Detected (Not Detect); Coronavirus OC43 Not Detected (Not Detect); Human Metapneumovirus Not Detected (Not Detect); Human Rhinovirus/Enterovirus Not Detected (Not Detect); Influenza A Subtype 2009 H1 Not Detected (Not Detect); Influenza B Not Detected (Not Detect); Mycoplasma pneumoniae Not Detected (Not Detect); Parainfluenza Virus 1 Not Detected (Not Detect); Parainfluenza Virus 2 Not Detected (Not Detect); Parainfluenza Virus 3 Not Detected (Not Detect); Parainfluenza Virus 4 Not Detected (Not Detect); Respiratory Syncytial Virus Not Detected (Not Detect); SARS-CoV-2 Not Detected (Not Detect)
[2020-12-13 21:38] LABS: Basophils % 0.3 %; Eosinophils % 0.2 %; Immature Granulocytes % 0.7 % (0-4); Lymphocytes # 0.8 K/mcL (0.6-4.6); Lymphocytes % 7.1 %; Mean Platelet Volume 9.7 fL (9.4-12.4); Monocytes # 0.7 K/mcL (0.0-1.3); Monocytes % 5.7 %; Neutrophils # 9.9 K/mcL (1.6-8.9); Platelet Count 159 K/mcL (140-400); White Blood Count 11.5 K/mcL (4.3-11.1)
[2020-12-13 21:44] LABS: Hemoglobin 12.8 g/dL (11.5-15.4); Red Blood Count 3.89 M/mcL (3.82-4.97)
[2020-12-13 21:45] LABS: Hematocrit 37.7 % (35.3-44.9); Mean Corpuscular Hemoglobin 32.9 pg (28.0-33.3); Mean Corpuscular Volume 96.9 fL (83.0-100.0)
[2020-12-13] MEDS ORDERED: Doxycycline 100 MG in 0.9 % Sodium Chloride Mini Bag 100 ML IVPB ONE (22:32)
[2020-12-13] MEDS ORDERED: Naloxone 0.4 MG/ML INJ IVP PRN (23:21)
[2020-12-13] MEDS ORDERED: Ondansetron 4 MG/2 ML VIAL IVP PRN (23:21)
[2020-12-14] MEDS: cefTRIAXone 1,000 MG in 0.9 % Sodium Chloride Mini Bag 100 ML IVPB SCH ×2 (00:32→08:16)
[2020-12-14 00:52] LABS: BUN/Creatinine Ratio 22 (6-26); Blood Urea Nitrogen 14 mg/dL (8-23); Carbon Dioxide 22 mEq/L (23-29); Chloride 105 mEq/L (98-107); Glucose 125 mg/dL (70-105); Osmolality,Calculated 280 (280-300); Potassium 4.1 mEq/L (3.5-5.1); Sodium 134 mEq/L (136-145); eGFR For African Americans > 60 (> 60); eGFR For Non-African Americans > 60 (> 60)
[2020-12-14] MEDS: *HR* LORazepam 0.5 MG TABLET PO PRN ×3 (01:09→20:25)
[2020-12-14 02:27] LABS: Mean Platelet Volume 9.8 fL (9.4-12.4); Platelet Count 145 K/mcL (140-400)
[2020-12-14 02:28] LABS: Hematocrit 37.2 % (35.3-44.9); Hemoglobin 12.6 g/dL (11.5-15.4); Mean Corpuscular HGB Conc 33.9 g/dL (31.6-35.5); Mean Corpuscular Hemoglobin 32.6 pg (28.0-33.3); Mean Corpuscular Volume 96.4 fL (83.0-100.0); Red Blood Count 3.86 M/mcL (3.82-4.97); White Blood Count 11.8 K/mcL (4.3-11.1)
[2020-12-14] MEDS ORDERED: 0.9 % Sodium Chloride 1,000 ML IVC SCH (02:30)
[2020-12-14] MEDS: *HR* Heparin 5,000 UNIT/ML VIAL SQ SCH ×3 (05:05→20:19)
[2020-12-14] MEDS: Azithromycin 500 MG in 0.9 % Sodium Chloride 250 ML IVPB SCH (08:24)
[2020-12-14 10:49] LABS: Estimated Average Glucose 117 mg/dl; Hemoglobin A1C 5.7 %
[2020-12-14] MEDS: Aspirin Enteric Coated 81 MG Tablet PO SCH (12:54)
[2020-12-15] MEDS: *HR* Heparin 5,000 UNIT/ML VIAL SQ SCH (06:00)
[2020-12-15 06:49] VITALS: BP 117/56
[2020-12-15 06:50] LABS: BUN/Creatinine Ratio 18 (6-26); Blood Urea Nitrogen 10 mg/dL (8-23); Calcium 8.5 mg/dL (8.6-10.3); Carbon Dioxide 24 mEq/L (23-29); Chloride 106 mEq/L (98-107); Glucose 98 mg/dL (70-105); Osmolality,Calculated 281 (280-300); Sodium 136 mEq/L (136-145); eGFR For African Americans > 60 (> 60); eGFR For Non-African Americans > 60 (> 60)
[2020-12-15] MEDS ORDERED: Ascorbic Acid 500 MG TABLET PO SCH (09:00)
[2020-12-15] MEDS ORDERED: Multivit/Ca/Min/Fe/FA 1 TAB TABLET PO SCH (09:00)
[2020-12-15] MEDS: Azithromycin 500 MG in 0.9 % Sodium Chloride 250 ML IVPB SCH (09:35)
[2020-12-15] MEDS: Aspirin Enteric Coated 81 MG Tablet PO SCH (09:35)
[2020-12-15] MEDS: cefTRIAXone 1,000 MG in 0.9 % Sodium Chloride Mini Bag 100 ML IVPB SCH (09:35)
[2020-12-15 11:21] LABS: Basophils % 0.5 %; Eosinophils # 0.1 K/mcL (0.0-0.6); Eosinophils % 1.5 %; Immature Granulocytes % 0.6 % (0-4); Lymphocytes # 1.4 K/mcL (0.6-4.6); Lymphocytes % 15.5 %; Mean Platelet Volume 10.1 fL (9.4-12.4); Monocytes # 0.7 K/mcL (0.0-1.3); Monocytes % 8.2 %; Neutrophils # 6.5 K/mcL (1.6-8.9); Platelet Count 137 K/mcL (140-400); Segmented Neutrophils % 73.7 %; White Blood Count 8.8 K/mcL (4.3-11.1)
[2020-12-15 11:23] LABS: Hemoglobin 11.7 g/dL (11.5-15.4)
[2020-12-15 11:24] LABS: Mean Corpuscular Hemoglobin 36.6 pg (28.0-33.3); Mean Corpuscular Volume 106.3 fL (83.0-100.0)
[2020-12-15 11:32] LABS: Mean Corpuscular HGB Conc 34.4 g/dL (31.6-35.5)
[2020-12-15 12:21] LABS: Platelet Estimate Slight Decrease (Normal)
== END 2020-12-15 11:09 | disposition home health service (06) | DRG 871 ==
LOC: 3BNU 17:25 → EMEROOARM 17:25 → 3BNU 23:58 → SUATTDRO 12-14 15:30
PROVIDERS: ADMIT Student in an Organized Health Care Education/Training Program; ATTEND Family Medicine

== ENCOUNTER 2021-01-06 18:27 | Observation (INO) ==
[2021-01-06] MEDS ORDERED: Isovue-370 500 ML BOTTLE IVP ONE (18:53)
[2021-01-06 19:25] LABS: BUN/Creatinine Ratio 24 (6-26); Blood Urea Nitrogen 16 mg/dL (8-23); Calcium 9.3 mg/dL (8.6-10.3); Carbon Dioxide 27 mEq/L (23-29); Chloride 98 mEq/L (98-107); Glucose 97 mg/dL (70-105); Magnesium 2.1 mg/dL (1.6-2.6); Osmolality,Calculated 277 (280-300); Phosphorous 3.2 mg/dL (2.7-4.5); Potassium 4.1 mEq/L (3.5-5.1); Sodium 133 mEq/L (136-145); eGFR For African Americans > 60 (> 60); eGFR For Non-African Americans > 60 (> 60)
[2021-01-06 19:26] LABS: Troponin I < 0.03 ng/mL (< 0.04)
[2021-01-06 19:52] LABS: Basophils % 0.7 %; Eosinophils # 0.1 K/mcL (0.0-0.6); Eosinophils % 1.7 %; Immature Granulocytes % 0.2 % (0-4); Lymphocytes % 36.7 %; Mean Platelet Volume 9.5 fL (9.4-12.4); Monocytes # 0.5 K/mcL (0.0-1.3); Monocytes % 9.8 %; Neutrophils # 2.8 K/mcL (1.6-8.9); Platelet Count 186 K/mcL (140-400); Segmented Neutrophils % 50.9 %; White Blood Count 5.4 K/mcL (4.3-11.1)
[2021-01-06 20:41] LABS: Hematocrit 36.3 % (35.3-44.9)
[2021-01-06 20:42] LABS: Mean Corpuscular HGB Conc 35.8 g/dL (31.6-35.5); Mean Corpuscular Hemoglobin 37.1 pg (28.0-33.3); Mean Corpuscular Volume 103.7 fL (83.0-100.0)
[2021-01-06] MEDS ORDERED: diazePAM 10 MG/2 ML SYRINGE IVP STA (22:51)
[2021-01-06] MEDS ORDERED: Ondansetron 4 MG/2 ML VIAL IVP PRN (23:32)
[2021-01-06] MEDS ORDERED: Melatonin 3 MG TABLET PO PRN (23:32)
[2021-01-06] MEDS ORDERED: Naloxone 0.4 MG/ML INJ IVP PRN (23:32)
[2021-01-07 01:54] LABS: BUN/Creatinine Ratio 24 (6-26); Blood Urea Nitrogen 14 mg/dL (8-23); Calcium 8.9 mg/dL (8.6-10.3); Carbon Dioxide 24 mEq/L (23-29); Chloride 102 mEq/L (98-107); Chol/HDL Ratio 3.3 (0-4.9); Cholesterol 169 mg/dL (< 200); Glucose 169 mg/dL (70-105); HDL Cholesterol 51 mg/dL (40-59); LDL Cholesterol,Calculated 82 mg/dL (< 100); Osmolality,Calculated 282 (280-300); Potassium 3.9 mEq/L (3.5-5.1); Sodium 134 mEq/L (136-145); Triglycerides 180 mg/dL (< 150); eGFR For African Americans > 60 (> 60); eGFR For Non-African Americans > 60 (> 60)
[2021-01-07 02:23] LABS: Folate > 22.3 ng/mL (3.0-16.0); Vitamin B12 475 pg/mL (250-1100)
[2021-01-07 02:24] LABS: Bilirubin,Urine Negative (Negative); Blood,Urine Negative (Negative); Clarity,Urine Clear (Clear); Color,Urine Colorless (Yellow); Glucose,Urine (UA) Normal (Normal); Ketones,Urine Negative (Negative); Leukocyte Esterase,Urine Negative (Negative); Nitrite,Urine Negative (Negative); PH,Urine 7.5 pH Units (5.0-8.0); Protein,Urine Negative (Neg-Trace); Urobilinogen,Urine Normal (Normal)
[2021-01-07 04:21] LABS: Basophils % 0.8 %; Eosinophils # 0.1 K/mcL (0.0-0.6); Eosinophils % 2.6 %; Immature Granulocytes % 0.4 % (0-4); Lymphocytes % 38.7 %; Mean Platelet Volume 9.4 fL (9.4-12.4); Monocytes # 0.5 K/mcL (0.0-1.3); Monocytes % 9.3 %; Neutrophils # 2.5 K/mcL (1.6-8.9); Platelet Count 171 K/mcL (140-400); Segmented Neutrophils % 48.2 %; White Blood Count 5.1 K/mcL (4.3-11.1)
[2021-01-07 04:25] LABS: Hemoglobin 12.1 g/dL (11.5-15.4); Red Blood Count 3.84 M/mcL (3.82-4.97)
[2021-01-07 04:26] LABS: Mean Corpuscular Volume 93.8 fL (83.0-100.0)
[2021-01-07 04:27] LABS: Mean Corpuscular HGB Conc 33.6 g/dL (31.6-35.5); Mean Corpuscular Hemoglobin 31.5 pg (28.0-33.3)
[2021-01-07] MEDS: *HR* Heparin 5,000 UNIT/ML VIAL SQ SCH ×2 (05:51→18:06)
[2021-01-07] MEDS: Aspirin Enteric Coated 81 MG Tablet PO SCH (09:46)
[2021-01-07] MEDS: *HR* LORazepam 0.5 MG TABLET PO SCH (16:21)
[2021-01-07] MEDS ORDERED: *HR* LORazepam 1 MG TABLET PO PRN (20:18)
[2021-01-08] MEDS: *HR* Heparin 5,000 UNIT/ML VIAL SQ SCH (05:34)
[2021-01-08 05:57] LABS: BUN/Creatinine Ratio 25 (6-26); Blood Urea Nitrogen 18 mg/dL (8-23); Calcium 9.1 mg/dL (8.6-10.3); Carbon Dioxide 29 mEq/L (23-29); Chloride 100 mEq/L (98-107); Glucose 108 mg/dL (70-105); Osmolality,Calculated 280 (280-300); Potassium 4.2 mEq/L (3.5-5.1); Sodium 134 mEq/L (136-145); eGFR For African Americans > 60 (> 60); eGFR For Non-African Americans > 60 (> 60)
[2021-01-08] MEDS ORDERED: Ascorbic Acid 500 MG TABLET PO SCH (09:00)
[2021-01-08] MEDS: Aspirin Enteric Coated 81 MG Tablet PO SCH (10:27)
[2021-01-08] MEDS: *HR* LORazepam 0.5 MG TABLET PO SCH (10:28)
[2021-01-08 10:30] LABS: Immature Granulocytes % 0.2 % (0-4)
[2021-01-08 10:33] LABS: Basophils # 0.1 K/mcL (0.0-0.2); Basophils % 1.2 %; Eosinophils # 0.2 K/mcL (0.0-0.6); Eosinophils % 3.5 %; Lymphocytes # 1.6 K/mcL (0.6-4.6); Lymphocytes % 37.9 %; Mean Platelet Volume 9.4 fL (9.4-12.4); Monocytes # 0.5 K/mcL (0.0-1.3); Monocytes % 10.9 %; Platelet Count 177 K/mcL (140-400); Segmented Neutrophils % 46.3 %; White Blood Count 4.3 K/mcL (4.3-11.1)
[2021-01-08 10:34] LABS: Hematocrit 34.7 % (35.3-44.9); Hemoglobin 11.2 g/dL (11.5-15.4); Mean Corpuscular Volume 99.1 fL (83.0-100.0); Red Cell Distribution Width 12.8 % (11.5-14.5)
[2021-01-08 10:36] LABS: Mean Corpuscular HGB Conc 32.3 g/dL (31.6-35.5)
[2021-01-08 14:16] VITALS: BP 115/53
== END 2021-01-08 17:48 | disposition home health service (06) ==
LOC: 3ANU 18:27 → EMEROOARM 18:27 → SUATTDRO 01-07 00:06 → 3ANU 01-07 00:24
PROVIDERS: ADMIT Family Medicine; ATTEND Internal Medicine